=== PATIENT | female | born 1965 | race Caucasian/White ===

== ENCOUNTER → 2016-05-05 | Outpatient (CLI) | payer OTHER ==
[~2016-05-05] MED LIST: OMEG100011 PO; PERC5TAB6 PO; PRAZ2CAP PO; SYNT50TA PO; VENL75CA47 PO; VITA100066 PO; ZOLP6.25 PO
--- NOTE | 2016-05-05 13:01 | REPMRS ---
Patient History The patient states she has not had a clinical breast exam in over a year. Family history of breast cancer in paternal grandmother at age 50 and breast cancer in maternal grandmother at age 60. Digital Woman Screen Mammo: May 05, 2016 - Exam #: [id number] Bilateral CC and MLO view(s) were taken. Technologist: Carlene Moser Technologist Prior study comparison: January 16, 2014, digital mammo diagnostic bilateral, performed at [facility]. FINDINGS: There are scattered fibroglandular densities. There has been no change in the appearance of the mammogram from the prior studies. There is a mild amount of residual fibroglandular tissue which is fairly symmetric. The mild tissue asymmetry in upper outer quadrant right breast is less prominent and still normal parenchyma. There is no interval development of dominant mass, architectural distortion, or clustered microcalcification suggestive of malignancy. No significant changes when compared with prior studies. ASSESSMENT: BI-RADS/ACR category 1 mammogram. Negative. Recommendation Routine screening mammogram in 1 year (for women over age 40). This mammogram was interpreted with the aid of an FDA-approved computer-aided dectection system. A. Negative x-ray reports should not delay biopsy if a dominant or clinically suspicious mass is present. B. Four to eight percent of cancers are not identified by mammography. C. Adenosis and dense breast may obscure an underlying neoplasm. Electronically Signed By: Ismael Castro MD 05/05/16 [id number]
== END ==
LOC: M WHC 11:15
PROVIDERS: ATTEND Physician Assistant
DX: Z12.31 Encounter for screening mammogram for malignant neoplasm of breast (principal)

== ENCOUNTER 2016-06-21 20:43 | Emergency (ER) | payer OTHER ==
[~2016-06-21] VITALS: Ht 167.6 cm; Wt 107.0 kg
[2016-06-21] MEDS ORDERED: SUCR1TA PO (21:05)
[2016-06-21] MEDS ORDERED: OMEP40CA2 PO (21:05)
[2016-06-21] MEDS ORDERED: MORPHINE 4 MG/ML 1ML SYRINGE IV PRN (21:45)
[2016-06-21] MEDS ORDERED: ONDANSETRON 4MG/2ML VIAL (J2405) IV ONE (21:45)
[2016-06-21 21:56] LABS: BASO % 0.7 % (0.0-1.0); EOS # 0.3 K/mm3 (0.0-0.50); EOS % 3.3 % (0.0-3.0); LARGE UNSTAINED CELL # 0.1 K/mm3 (0.0-0.4); LARGE UNSTAINED CELL % 1.4 % (0.0-4.0); LYMPH # 1.9 K/mm3 (1.5-4.5); LYMPH % 21.9 % (24.0-44.0); MEAN CORPUSCULAR VOLUME 90.9 fl (80.0-96.0); MONO # 0.4 K/mm3 (0.0-0.8); MONO % 4.2 % (0.0-5.0); NEUTROPHILS # 5.7 K/mm3 (1.8-7.7); NEUTROPHILS % 68.6 % (36.0-66.0); PLATELET COUNT, AUTOMATED 543 k/mm3 (150-450); RED CELL DISTRIBUTION WIDTH 14.1 % (11.5-14.5); WHITE BLOOD COUNT 8.3 K/mm3 (4.0-10.0)
[2016-06-21 22:27] LABS: CREATININE FOR GFR 1.35 MG/DL (0.55-1.02); POTASSIUM SERUM 4.6 MEQ/L (3.5-5.1)
[2016-06-21] MEDS ORDERED: HYDROmorphone HCL 1 MG/ML SYRINGE (J1170) IV PRN (22:45)
[2016-06-22] MEDS ORDERED: ISOVUE-370 76% 100ML VIAL (Q9967) As Ordered ONE
--- NOTE | 2016-06-22 01:30 | REPUSA ---
CT angiogram of the chest Clinical statement: Chest pain and shortness of breath. Technique: Multiple axial CT images were obtained from the thoracic inlet through the upper abdomen a fter a bolus administration of nonionic intravenous contrast. Coronal and sagittal reconstructions we re also obtained. No comparison is available. Findings: The pulmonary arteries are well-opacified with contrast, with no intraluminal filling defec ts to suggest embolism. The thoracic aorta is unremarkable. Thyroid gland is within normal limits. Th ere is no thoracic lymphadenopathy. There are no pericardial or pleural effusions. There are patchy b ilateral lower lobe infiltrates. Limited imaging of the upper abdomen is unremarkable. There are no s uspicious osseous lesions. Impression: 1. No evidence of pulmonary embolism. 2. Bilateral lower lobe infiltrates.
[2016-06-22 04:19] VITALS: BP 112/68
--- NOTE | 2016-06-22 06:05 | ECGEPIP ---
Stationary ECG Study [facility] - ED Test Date: 2016-06-21 Pat Name: ABRIL PARIS Department: Room: - Gender: F Assembler Installer General: anastasiia : 1965 Requested By: MOI Snider Order Number: [id number] Reading MD: Manny Mauro Measurements Intervals [place] Rate: 83 P: 46 NC: 167 QRS: -12 QRSD: 69 T: 20 QT: 356 QTc: 419 Interpretive Statements SINUS RHYTHM VOLTAGE CRITERIA FOR LVH SIMILAR TO 03/20/15 Electronically Signed On 06-22-2016 6:05:02 EDT by Manny Mauro
--- NOTE | 2016-06-22 06:08 | ECGEPIP ---
Stationary ECG Study [facility] - ED Test Date: 2016-06-22 Pat Name: ABRIL PARIS Department: Room: - Gender: F Associate Software Developer: rosalind : 1965 Requested By: MOI Snider Order Number: [id number] Reading MD: Manny Mauro Measurements Intervals [place] Rate: 65 P: 42 WV: 182 QRS: 1 QRSD: 84 T: 37 QT: 433 QTc: 452 Interpretive Statements SINUS RHYTHM BORDERLINE 1ST DEGREE AV BLOCK MODERATE VOLTAGE CRITERIA FOR LVH, CONSIDER NORMAL VARIANT Electronically Signed On 06-22-2016 6:08:15 EDT by Manny Mauro
--- NOTE | 2016-06-24 20:54 | ED PDOC ---
Post-Departure Follow-Up cta faxed to hilda jamil for follow up Stephen Lara MD Jun 24, 2016 20:54
== END 2016-06-22 04:21 | disposition home or self-care (01) ==
LOC: EDBD 20:43 → M ED 21:17
DX: R07.89 Other chest pain (principal)
CPT/HCPCS: 71275; 80048; 82550; 82553; 85025; 85379; 93005; 93041; 94760; 96374; 96375; 99285; J1170; J2405; Q9967

== ENCOUNTER → 2016-12-24 | Outpatient (REF) | payer OTHER ==
[~2016-12-24] MED LIST changes: +OMEP40CA2 PO; +PERC5TAB12 PO; -PERC5TAB6 PO; +SUCR1TA PO
== END ==
LOC: M SFHCLERA 13:45
PROVIDERS: ATTEND Physician Assistant
DX: R30.0 Dysuria (principal); J02.9 Acute pharyngitis, unspecified

== ENCOUNTER 2017-03-19 03:05 | Emergency (ER) | payer OTHER ==
[2017-03-19] MEDS: KETOROLAC 30 MG/ML VIAL (J1885) IV (03:45)
[2017-03-19] MEDS: dexameTHASONE 20 MG/5 ML VIAL (J1100) IV (03:45)
[2017-03-19] MEDS: NS 500 ML IV (03:45)
[2017-03-19 04:30] LABS: BASO # 0.1 10^3/uL (0.0-0.2); BASO % 0.9 % (0.0-1.0); EOS # 0.2 10^3/uL (0.0-0.50); EOS % 2.4 % (0.0-3.0); HEMATOCRIT 45.1 % (36.0-47.0); HEMOGLOBIN 15.3 g/dl (12.0-16.0); IMMATURE GRANULOCYTE % 0.3 % (0-0); LYMPH # 1.7 10^3/uL (1.5-4.5); LYMPH % 19.2 % (24.0-44.0); MEAN CORPUSCULAR HEMOGLOBIN 30.1 pg (27.0-33.0); MEAN CORPUSCULAR HGB CONC 33.9 g/dl (32.0-36.5); MEAN CORPUSCULAR VOLUME 88.8 fl (80.0-96.0); MONO # 0.4 10^3/uL (0.0-0.8); MONO % 4.4 % (0.0-5.0); NEUTROPHILS # 6.6 10^3/uL (1.8-7.7); NEUTROPHILS % 72.8 % (36.0-66.0); PLATELET COUNT, AUTOMATED 560 10^3/uL (150-450); RED BLOOD COUNT 5.08 10^6/uL (4.00-5.40); RED CELL DISTRIBUTION WIDTH 14.5 % (11.5-14.5); WHITE BLOOD COUNT 9.1 10^3/uL (4.0-10.0)
[2017-03-19 04:50] LABS: INR 0.97
[2017-03-19 04:51] LABS: PARTIAL THROMBOPLASTIN TIME 31.5 SECONDS (26.8-37.9)
[2017-03-19 05:27] LABS: ANION GAP 9 MEQ/L (8-16); BLOOD UREA NITROGEN 20 MG/DL (7-18); CALCIUM LEVEL 8.5 MG/DL (8.5-10.1); CARBON DIOXIDE LEVEL 23 MEQ/L (21-32); CHLORIDE LEVEL 111 MEQ/L (98-107); CPK CREATINE PHOSPHOKINASE 92 U/L (26-192); CREATININE FOR GFR 0.95 MG/DL (0.55-1.02); GLOMERULAR FILTRATION RATE > 60.0 (>51); GLUCOSE, FASTING 138 MG/DL (70-105); MB/CK RELATIVE INDEX 1.08 (< OR =4); POTASSIUM SERUM 4.1 MEQ/L (3.5-5.1); SODIUM LEVEL 143 MEQ/L (136-145); TROPONIN I 0.06 NG/ML (< 0.10)
[2017-03-19] MEDS ORDERED: ISOVUE-370 76% 100ML VIAL (Q9967) As Ordered (05:39)
[2017-03-19 05:56] LABS: D-DIMER QUANT 640.5 ng/ml (<500)
[2017-03-19] MEDS: HYDROmorphone HCL 1 MG/ML SYRINGE (J1170) IV ×4 (05:57→10:21)
[2017-03-19] MEDS: ONDANSETRON 4MG/2ML VIAL (J2405) IV (10:43)
== END 2017-03-19 11:00 | disposition home or self-care (01) ==
LOC: M ED 03:05
DX: M75.122 Complete rotator cuff tear or rupture of left shoulder, not specified as traumatic (principal); F41.9 Anxiety disorder, unspecified; G43.909 Migraine, unspecified, not intractable, without status migrainosus; Z86.718 Personal history of other venous thrombosis and embolism; Z98.84 Bariatric surgery status; Z91.048 Other nonmedicinal substance allergy status
CPT/HCPCS: J1170

== ENCOUNTER 2017-03-20 11:10 | Emergency (ER) | payer OTHER ==
[2017-03-20] MEDS: HYDROmorphone HCL 1 MG/ML SYRINGE (J1170) IM (11:38)
[2017-03-20] MEDS: methylPREDNISolone INJ 125 MG/2 ML VIAL (J2930) IM (12:58)
[2017-03-20] MEDS: ONDANSETRON 4 MG ORAL DISINTEGRATING TAB (S0181) PO (12:58)
== END 2017-03-20 13:38 | disposition home or self-care (01) ==
LOC: M ED 11:10
DX: R20.2 Paresthesia of skin (principal); M25.512 Pain in left shoulder; M79.602 Pain in left arm; Z98.84 Bariatric surgery status; Z91.048 Other nonmedicinal substance allergy status; Z87.891 Personal history of nicotine dependence
CPT/HCPCS: J1170

== ENCOUNTER 2017-03-22 07:08 | Inpatient (IN) | payer OTHER ==
[2017-03-22] MEDS: ONDANSETRON 4MG/2ML VIAL (J2405) IV (08:09)
[2017-03-22] MEDS: HYDROmorphone HCL 1 MG/ML SYRINGE (J1170) IV ×2 (08:09→09:02)
[2017-03-22 08:11] LABS: BASO % 0.3 % (0.0-1.0); EOS % 0.2 % (0.0-3.0); HEMATOCRIT 42.3 % (36.0-47.0); HEMOGLOBIN 14.1 g/dl (12.0-16.0); IMMATURE GRANULOCYTE % 0.4 % (0-0); LYMPH # 2.2 10^3/uL (1.5-4.5); LYMPH % 19.7 % (24.0-44.0); MEAN CORPUSCULAR HEMOGLOBIN 30.2 pg (27.0-33.0); MEAN CORPUSCULAR HGB CONC 33.3 g/dl (32.0-36.5); MEAN CORPUSCULAR VOLUME 90.6 fl (80.0-96.0); MONO # 0.5 10^3/uL (0.0-0.8); MONO % 4.5 % (0.0-5.0); NEUTROPHILS # 8.2 10^3/uL (1.8-7.7); NEUTROPHILS % 74.9 % (36.0-66.0); PLATELET COUNT, AUTOMATED 589 10^3/uL (150-450); RED BLOOD COUNT 4.67 10^6/uL (4.00-5.40); RED CELL DISTRIBUTION WIDTH 14.8 % (11.5-14.5)
[2017-03-22 08:37] LABS: ERYTHROCYTE SEDIMENTATION RATE 6 mm/hr (0-30)
[2017-03-22 08:50] LABS: ALBUMIN 3.4 GM/DL (3.2-5.2); ALKALINE PHOSPHATASE 96 U/L (45-117); ALT/SGPT 102 U/L (12-78); ANION GAP 5 MEQ/L (8-16); AST/SGOT 38 U/L (7-37); BILIRUBIN,DIRECT < 0.1 MG/DL (0.0-0.2); BILIRUBIN,TOTAL 0.4 MG/DL (0.2-1.0); BLOOD UREA NITROGEN 22 MG/DL (7-18); C REACTIVE PROTEIN QUANTITATIV < 0.30 MG/DL (0.00-0.30); CALCIUM LEVEL 8.6 MG/DL (8.5-10.1); CARBON DIOXIDE LEVEL 27 MEQ/L (21-32); CHLORIDE LEVEL 108 MEQ/L (98-107); CPK CREATINE PHOSPHOKINASE 51 U/L (26-192); CREATININE FOR GFR 0.86 MG/DL (0.55-1.02); GLOMERULAR FILTRATION RATE > 60.0 (>51); GLUCOSE, FASTING 106 MG/DL (70-105); POTASSIUM SERUM 3.9 MEQ/L (3.5-5.1); RHEUMATOID FACTOR QUANT < 10.0 IU/ML (0-15.0); SODIUM LEVEL 140 MEQ/L (136-145); TOTAL PROTEIN 6.8 GM/DL (6.4-8.2); TROPONIN I 0.03 NG/ML (< 0.10)
[2017-03-22 08:51] LABS: LACTIC ACID SEPSIS PROTOCOL 2.2 MMOL/L (0.4-2.0)
[2017-03-22 08:52] LABS: MB/CK RELATIVE INDEX 1.96 (< OR =4)
[2017-03-22] MEDS: NS 1,000 ML IV (09:02)
[2017-03-22] MEDS: CAPSAICIN 0.025% CR 60 GM TOP ×3 (13:00→21:00)
[2017-03-22] MEDS: HEPARIN SOD (PORCINE) 5000 UNITS/ML VIAL SC ×2 (13:54→21:58)
[2017-03-22] MEDS: PERCOCET 5MG/325MG TAB PO ×3 (13:54→22:07)
[2017-03-22] MEDS: MIRALAX *UNIT DOSE* 17GM PACKET PO ×2 (13:59→21:58)
[2017-03-22] MEDS: LIDOCAINE 5% (LIDODERM) PATCH TD (13:59)
[2017-03-22] MEDS: LEVOTHYROXINE 50MCG TABLET (0.05MG) PO (14:01)
[2017-03-22 14:45] LABS: TROPONIN I 0.04 NG/ML (< 0.10)
[2017-03-22 15:02] LABS: HEPATITIS B SURFACE ANTIGEN NEGATIVE (NEGATIVE)
[2017-03-22 15:28] LABS: HEPATITIS C VIRUS ABY INDEX 0.1 INDEX (<0.8)
[2017-03-22 15:28] LABS: HEPATITIS B CORE ANTIBODY IGM NEGATIVE (NEGATIVE)
[2017-03-22 15:32] LABS: HEPATITIS A ANTIBODY IGM NEGATIVE (NEGATIVE)
[2017-03-22] MEDS: PREGABALIN 25 MG CAP (LYRICA) PO ×2 (16:34→21:58)
[2017-03-22] MEDS: ACETAMINOPHEN TAB 650MG DOSE (2X325MG) PO (20:47)
[2017-03-22] MEDS: **NOTE PATIENT COMMENT** MISC XX (21:00)
[2017-03-22 22:44] LABS: TROPONIN I 0.03 NG/ML (< 0.10)
[2017-03-23] MEDS: PERCOCET 5MG/325MG TAB PO ×6 (02:16→21:41)
[2017-03-23] MEDS: LEVOTHYROXINE 50MCG TABLET (0.05MG) PO (05:33)
[2017-03-23] MEDS: HEPARIN SOD (PORCINE) 5000 UNITS/ML VIAL SC ×3 (05:33→21:42)
[2017-03-23 06:23] LABS: HEMATOCRIT 39.8 % (36.0-47.0); HEMOGLOBIN 13.1 g/dl (12.0-16.0); MEAN CORPUSCULAR HEMOGLOBIN 29.8 pg (27.0-33.0); MEAN CORPUSCULAR HGB CONC 32.9 g/dl (32.0-36.5); MEAN CORPUSCULAR VOLUME 90.5 fl (80.0-96.0); PLATELET COUNT, AUTOMATED 533 10^3/uL (150-450); RED CELL DISTRIBUTION WIDTH 14.7 % (11.5-14.5); WHITE BLOOD COUNT 7.3 10^3/uL (4.0-10.0)
[2017-03-23 06:33] LABS: ANION GAP 7 MEQ/L (8-16); BLOOD UREA NITROGEN 24 MG/DL (7-18); CALCIUM LEVEL 8.3 MG/DL (8.5-10.1); CARBON DIOXIDE LEVEL 27 MEQ/L (21-32); CHLORIDE LEVEL 109 MEQ/L (98-107); CREATININE FOR GFR 0.92 MG/DL (0.55-1.02); GLOMERULAR FILTRATION RATE > 60.0 (>51); GLUCOSE, FASTING 90 MG/DL (70-105); POTASSIUM SERUM 4.1 MEQ/L (3.5-5.1); SODIUM LEVEL 143 MEQ/L (136-145)
[2017-03-23] MEDS: CAPSAICIN 0.025% CR 60 GM TOP ×4 (07:31→20:57)
[2017-03-23 09:31] LABS: DRVV SCREEN 36.1 SEC
[2017-03-23] MEDS: PREGABALIN 25 MG CAP (LYRICA) PO ×3 (09:33→21:41)
[2017-03-23] MEDS: LIDOCAINE 5% (LIDODERM) PATCH TD (09:33)
[2017-03-23] MEDS: MIRALAX *UNIT DOSE* 17GM PACKET PO ×2 (09:33→21:42)
[2017-03-23 09:36] LABS: PTT LUPUS TYPE ANTICOAG SCREEN 0.8 (0-1.2)
[2017-03-23] MEDS: **NOTE PATIENT COMMENT** MISC XX (21:00)
[2017-03-24] MEDS: PERCOCET 5MG/325MG TAB PO ×5 (01:46→19:51)
[2017-03-24] MEDS: CYCLOBENZAPRINE 5MG TABLET PO ×2 (03:29→13:21)
[2017-03-24] MEDS: LEVOTHYROXINE 50MCG TABLET (0.05MG) PO (05:31)
[2017-03-24] MEDS: HEPARIN SOD (PORCINE) 5000 UNITS/ML VIAL SC ×3 (05:31→21:15)
[2017-03-24 07:05] LABS: HEMATOCRIT 39.3 % (36.0-47.0); MEAN CORPUSCULAR HEMOGLOBIN 29.8 pg (27.0-33.0); MEAN CORPUSCULAR HGB CONC 33.1 g/dl (32.0-36.5); MEAN CORPUSCULAR VOLUME 90.1 fl (80.0-96.0); PLATELET COUNT, AUTOMATED 480 10^3/uL (150-450); RED BLOOD COUNT 4.36 10^6/uL (4.00-5.40); RED CELL DISTRIBUTION WIDTH 14.5 % (11.5-14.5); WHITE BLOOD COUNT 6.5 10^3/uL (4.0-10.0)
[2017-03-24 07:28] LABS: ANION GAP 7 MEQ/L (8-16); BLOOD UREA NITROGEN 23 MG/DL (7-18); CALCIUM LEVEL 8.3 MG/DL (8.5-10.1); CARBON DIOXIDE LEVEL 28 MEQ/L (21-32); CHLORIDE LEVEL 108 MEQ/L (98-107); CREATININE FOR GFR 0.93 MG/DL (0.55-1.02); GLOMERULAR FILTRATION RATE > 60.0 (>51); GLUCOSE, FASTING 96 MG/DL (70-105); POTASSIUM SERUM 3.9 MEQ/L (3.5-5.1); SODIUM LEVEL 143 MEQ/L (136-145)
[2017-03-24] MEDS: CAPSAICIN 0.025% CR 60 GM TOP ×5 (08:08→21:17)
[2017-03-24] MEDS: LIDOCAINE 5% (LIDODERM) PATCH TD (08:22)
[2017-03-24] MEDS: MIRALAX *UNIT DOSE* 17GM PACKET PO ×2 (08:23→21:15)
[2017-03-24] MEDS: PREGABALIN 75 MG CAP(LYRICA) PO ×2 (08:23→21:15)
[2017-03-24] MEDS: CARISOPRODOL 350 MG TAB PO ×2 (08:23→21:15)
[2017-03-24] MEDS ORDERED: PROHANCE 279.3MG/ML 15ML VIAL (A9576) As Ordered (12:30)
[2017-03-24] MEDS ORDERED: PROHANCE 279.3MG/ML 5ML VIAL (A9576) As Ordered (12:30)
[2017-03-24] MEDS: **NOTE PATIENT COMMENT** MISC XX (21:00)
[2017-03-25] MEDS: PERCOCET 5MG/325MG TAB PO ×5 (02:22→22:44)
[2017-03-25] MEDS: HEPARIN SOD (PORCINE) 5000 UNITS/ML VIAL SC ×3 (05:21→20:31)
[2017-03-25] MEDS: LEVOTHYROXINE 50MCG TABLET (0.05MG) PO (05:21)
[2017-03-25 06:30] LABS: HEMATOCRIT 39.9 % (36.0-47.0); HEMOGLOBIN 13.2 g/dl (12.0-16.0); MEAN CORPUSCULAR HEMOGLOBIN 30.2 pg (27.0-33.0); MEAN CORPUSCULAR HGB CONC 33.1 g/dl (32.0-36.5); MEAN CORPUSCULAR VOLUME 91.3 fl (80.0-96.0); PLATELET COUNT, AUTOMATED 504 10^3/uL (150-450); RED BLOOD COUNT 4.37 10^6/uL (4.00-5.40); RED CELL DISTRIBUTION WIDTH 14.5 % (11.5-14.5)
[2017-03-25 06:44] LABS: ANION GAP 6 MEQ/L (8-16); BLOOD UREA NITROGEN 22 MG/DL (7-18); CALCIUM LEVEL 8.3 MG/DL (8.5-10.1); CARBON DIOXIDE LEVEL 29 MEQ/L (21-32); CHLORIDE LEVEL 107 MEQ/L (98-107); GLOMERULAR FILTRATION RATE > 60.0 (>51); GLUCOSE, FASTING 91 MG/DL (70-105); POTASSIUM SERUM 4.6 MEQ/L (3.5-5.1); SODIUM LEVEL 142 MEQ/L (136-145)
[2017-03-25] MEDS: CARISOPRODOL 350 MG TAB PO ×2 (08:16→20:31)
[2017-03-25] MEDS: PREGABALIN 75 MG CAP(LYRICA) PO ×2 (08:16→20:31)
[2017-03-25] MEDS: MIRALAX *UNIT DOSE* 17GM PACKET PO ×2 (08:17→20:32)
[2017-03-25] MEDS: LIDOCAINE 5% (LIDODERM) PATCH TD (08:17)
[2017-03-25] MEDS: CAPSAICIN 0.025% CR 60 GM TOP ×4 (08:18→20:31)
[2017-03-25 11:54] LABS: BEDSIDE GLUCOSE 92 MG/DL (70-105)
[2017-03-25] MEDS: **NOTE PATIENT COMMENT** MISC XX (20:31)
[2017-03-26] MEDS: PERCOCET 5MG/325MG TAB PO ×5 (03:03→22:50)
[2017-03-26] MEDS: ONDANSETRON 4MG/2ML VIAL (J2405) IV (04:04)
[2017-03-26] MEDS: HEPARIN SOD (PORCINE) 5000 UNITS/ML VIAL SC ×3 (05:48→21:59)
[2017-03-26] MEDS: LEVOTHYROXINE 50MCG TABLET (0.05MG) PO (05:48)
[2017-03-26 06:07] LABS: HEMATOCRIT 42.2 % (36.0-47.0); HEMOGLOBIN 13.9 g/dl (12.0-16.0); MEAN CORPUSCULAR HEMOGLOBIN 30.4 pg (27.0-33.0); MEAN CORPUSCULAR HGB CONC 32.9 g/dl (32.0-36.5); MEAN CORPUSCULAR VOLUME 92.3 fl (80.0-96.0); PLATELET COUNT, AUTOMATED 488 10^3/uL (150-450); RED BLOOD COUNT 4.57 10^6/uL (4.00-5.40); RED CELL DISTRIBUTION WIDTH 14.7 % (11.5-14.5); WHITE BLOOD COUNT 5.4 10^3/uL (4.0-10.0)
[2017-03-26 06:19] LABS: ANION GAP 4 MEQ/L (8-16); BLOOD UREA NITROGEN 17 MG/DL (7-18); CALCIUM LEVEL 8.7 MG/DL (8.5-10.1); CARBON DIOXIDE LEVEL 30 MEQ/L (21-32); CHLORIDE LEVEL 103 MEQ/L (98-107); CREATININE FOR GFR 0.93 MG/DL (0.55-1.02); GLOMERULAR FILTRATION RATE > 60.0 (>51); GLUCOSE, FASTING 104 MG/DL (70-105); POTASSIUM SERUM 4.6 MEQ/L (3.5-5.1); SODIUM LEVEL 137 MEQ/L (136-145)
[2017-03-26] MEDS: MIRALAX *UNIT DOSE* 17GM PACKET PO ×2 (07:46→20:13)
[2017-03-26] MEDS: LIDOCAINE 5% (LIDODERM) PATCH TD (07:46)
[2017-03-26] MEDS: PREGABALIN 75 MG CAP(LYRICA) PO ×2 (07:47→20:13)
[2017-03-26] MEDS: CARISOPRODOL 350 MG TAB PO ×2 (07:48→20:13)
[2017-03-26] MEDS: CAPSAICIN 0.025% CR 60 GM TOP ×5 (07:49→20:15)
[2017-03-26] MEDS: BISACODYL 10 MG SUPP PR (11:20)
[2017-03-26] MEDS: **NOTE PATIENT COMMENT** MISC XX (20:13)
[2017-03-26] MEDS ORDERED: ONDANSETRON 4 MG ORAL DISINTEGRATING TAB (S0181) PO (21:30)
[2017-03-27] MEDS: PERCOCET 5MG/325MG TAB PO ×5 (05:07→23:27)
[2017-03-27] MEDS: HEPARIN SOD (PORCINE) 5000 UNITS/ML VIAL SC ×3 (05:08→21:08)
[2017-03-27 05:38] LABS: HEMATOCRIT 42.1 % (36.0-47.0); HEMOGLOBIN 13.7 g/dl (12.0-16.0); MEAN CORPUSCULAR HEMOGLOBIN 30.2 pg (27.0-33.0); MEAN CORPUSCULAR HGB CONC 32.5 g/dl (32.0-36.5); MEAN CORPUSCULAR VOLUME 92.7 fl (80.0-96.0); PLATELET COUNT, AUTOMATED 448 10^3/uL (150-450); RED BLOOD COUNT 4.54 10^6/uL (4.00-5.40); RED CELL DISTRIBUTION WIDTH 14.9 % (11.5-14.5); WHITE BLOOD COUNT 6.3 10^3/uL (4.0-10.0)
[2017-03-27] MEDS: LEVOTHYROXINE 50MCG TABLET (0.05MG) PO (05:42)
[2017-03-27 05:59] LABS: ANION GAP 4 MEQ/L (8-16); BLOOD UREA NITROGEN 12 MG/DL (7-18); CALCIUM LEVEL 8.6 MG/DL (8.5-10.1); CARBON DIOXIDE LEVEL 29 MEQ/L (21-32); CHLORIDE LEVEL 107 MEQ/L (98-107); CREATININE FOR GFR 0.91 MG/DL (0.55-1.02); GLOMERULAR FILTRATION RATE > 60.0 (>51); GLUCOSE, FASTING 105 MG/DL (70-105); POTASSIUM SERUM 4.5 MEQ/L (3.5-5.1); SODIUM LEVEL 140 MEQ/L (136-145)
[2017-03-27] MEDS: CAPSAICIN 0.025% CR 60 GM TOP ×4 (09:00→20:11)
[2017-03-27] MEDS: MIRALAX *UNIT DOSE* 17GM PACKET PO ×2 (09:39→20:11)
[2017-03-27] MEDS: CARISOPRODOL 350 MG TAB PO ×2 (09:39→20:11)
[2017-03-27] MEDS: PREGABALIN 75 MG CAP(LYRICA) PO ×2 (09:39→20:11)
[2017-03-27] MEDS: LIDOCAINE 5% (LIDODERM) PATCH TD (09:39)
[2017-03-27] MEDS: **NOTE PATIENT COMMENT** MISC XX (20:11)
[2017-03-28] MEDS: PERCOCET 5MG/325MG TAB PO ×5 (04:09→21:32)
[2017-03-28] MEDS: LEVOTHYROXINE 50MCG TABLET (0.05MG) PO (05:39)
[2017-03-28] MEDS: HEPARIN SOD (PORCINE) 5000 UNITS/ML VIAL SC ×3 (05:39→21:32)
[2017-03-28] MEDS: CAPSAICIN 0.025% CR 60 GM TOP ×4 (09:00→19:47)
[2017-03-28] MEDS: LIDOCAINE 5% (LIDODERM) PATCH TD (09:03)
[2017-03-28] MEDS: MIRALAX *UNIT DOSE* 17GM PACKET PO ×2 (09:03→21:33)
[2017-03-28] MEDS: CARISOPRODOL 350 MG TAB PO ×2 (09:03→21:32)
[2017-03-28] MEDS: PREGABALIN 75 MG CAP(LYRICA) PO ×2 (09:03→21:32)
[2017-03-28] MEDS: **NOTE PATIENT COMMENT** MISC XX (21:00)
[2017-03-29] MEDS: PERCOCET 5MG/325MG TAB PO ×6 (01:48→23:18)
[2017-03-29] MEDS: HEPARIN SOD (PORCINE) 5000 UNITS/ML VIAL SC ×3 (05:50→21:47)
[2017-03-29] MEDS: LEVOTHYROXINE 50MCG TABLET (0.05MG) PO (05:51)
[2017-03-29] MEDS: BISACODYL 10 MG SUPP PR (05:51)
[2017-03-29] MEDS: CAPSAICIN 0.025% CR 60 GM TOP ×4 (09:00→20:08)
[2017-03-29] MEDS: LIDOCAINE 5% (LIDODERM) PATCH TD (10:04)
[2017-03-29] MEDS: MIRALAX *UNIT DOSE* 17GM PACKET PO ×2 (10:04→20:32)
[2017-03-29] MEDS: PREGABALIN 75 MG CAP(LYRICA) PO ×2 (10:06→21:47)
[2017-03-29] MEDS: CARISOPRODOL 350 MG TAB PO ×2 (10:06→21:47)
[2017-03-29] MEDS: **NOTE PATIENT COMMENT** MISC XX (21:47)
[2017-03-30] MEDS: PERCOCET 5MG/325MG TAB PO ×4 (03:28→20:09)
[2017-03-30] MEDS: HEPARIN SOD (PORCINE) 5000 UNITS/ML VIAL SC ×3 (06:11→21:32)
[2017-03-30] MEDS: LEVOTHYROXINE 50MCG TABLET (0.05MG) PO (06:11)
[2017-03-30] MEDS: PREGABALIN 75 MG CAP(LYRICA) PO ×2 (07:56→21:32)
[2017-03-30] MEDS: CARISOPRODOL 350 MG TAB PO ×2 (07:56→21:32)
[2017-03-30] MEDS: MIRALAX *UNIT DOSE* 17GM PACKET PO ×2 (07:56→20:09)
[2017-03-30] MEDS: LIDOCAINE 5% (LIDODERM) PATCH TD (07:57)
[2017-03-30] MEDS: CAPSAICIN 0.025% CR 60 GM TOP ×4 (07:58→20:09)
[2017-03-30] MEDS: **NOTE PATIENT COMMENT** MISC XX (21:00)
[2017-03-31] MEDS: PERCOCET 5MG/325MG TAB PO ×3 (02:55→12:41)
[2017-03-31] MEDS: HEPARIN SOD (PORCINE) 5000 UNITS/ML VIAL SC (05:37)
[2017-03-31] MEDS: LEVOTHYROXINE 50MCG TABLET (0.05MG) PO (05:37)
[2017-03-31] MEDS: PREGABALIN 75 MG CAP(LYRICA) PO (08:06)
[2017-03-31] MEDS: CARISOPRODOL 350 MG TAB PO (08:06)
[2017-03-31] MEDS: LIDOCAINE 5% (LIDODERM) PATCH TD (08:07)
[2017-03-31] MEDS: MIRALAX *UNIT DOSE* 17GM PACKET PO (08:07)
[2017-03-31] MEDS: CAPSAICIN 0.025% CR 60 GM TOP ×3 (08:09→12:12)
== END 2017-03-31 13:15 | disposition home or self-care (01) | DRG 556 ==
LOC: M ED 07:08 → M ED INP 11:15 → M MSPAV 12:39
DX: M79.602 Pain in left arm (principal); E87.2 Acidosis; E03.9 Hypothyroidism, unspecified; E66.01 Morbid (severe) obesity due to excess calories; F31.9 Bipolar disorder, unspecified; I10 Essential (primary) hypertension; Z79.899 Other long term (current) drug therapy; Z91.14 Patient's other noncompliance with medication regimen; Z90.710 Acquired absence of both cervix and uterus; Z98.84 Bariatric surgery status; Z86.718 Personal history of other venous thrombosis and embolism; Z91.5 Personal history of self-harm; Z91.048 Other nonmedicinal substance allergy status

== ENCOUNTER 2017-05-02 16:30 | Inpatient (IN) | payer OTHER ==
[2017-05-02] MEDS: MORPHINE 4 MG/ML 1ML VIAL (J2270) IV (18:49)
[2017-05-02 19:10] LABS: BASO # 0.1 10^3/uL (0.0-0.2); BASO % 0.8 % (0.0-1.0); EOS # 0.3 10^3/uL (0.0-0.50); EOS % 3.5 % (0.0-3.0); HEMATOCRIT 41.7 % (36.0-47.0); HEMOGLOBIN 14.1 g/dl (12.0-16.0); IMMATURE GRANULOCYTE % 0.3 % (0-3.0); LYMPH # 1.7 10^3/uL (1.5-4.5); LYMPH % 24.2 % (24.0-44.0); MEAN CORPUSCULAR HEMOGLOBIN 29.5 pg (27.0-33.0); MEAN CORPUSCULAR HGB CONC 33.8 g/dl (32.0-36.5); MEAN CORPUSCULAR VOLUME 87.2 fl (80.0-96.0); MONO # 0.4 10^3/uL (0.0-0.8); MONO % 5.3 % (0.0-5.0); NEUTROPHILS # 4.7 10^3/uL (1.8-7.7); NEUTROPHILS % 65.9 % (36.0-66.0); PLATELET COUNT, AUTOMATED 406 10^3/uL (150-450); RED BLOOD COUNT 4.78 10^6/uL (4.00-5.40); WHITE BLOOD COUNT 7.1 10^3/uL (4.0-10.0)
[2017-05-02 19:19] LABS: ANION GAP 7 MEQ/L (8-16); BLOOD UREA NITROGEN 14 MG/DL (7-18); CALCIUM LEVEL 8.4 MG/DL (8.5-10.1); CARBON DIOXIDE LEVEL 27 MEQ/L (21-32); CHLORIDE LEVEL 111 MEQ/L (98-107); CREATININE FOR GFR 0.81 MG/DL (0.55-1.30); GLOMERULAR FILTRATION RATE > 60.0 (>51); GLUCOSE, FASTING 82 MG/DL (70-100); POTASSIUM SERUM 3.7 MEQ/L (3.5-5.1); SODIUM LEVEL 145 MEQ/L (136-145)
[2017-05-02] MEDS: MIRALAX *UNIT DOSE* 17GM PACKET PO (21:00)
[2017-05-02] MEDS: PREGABALIN 75 MG CAP(LYRICA) PO (21:00)
[2017-05-02 21:09] LABS: TROPONIN I 0.03 NG/ML (< 0.10)
[2017-05-02 21:44] LABS: CPK CREATINE PHOSPHOKINASE 84 U/L (26-192); FREE T4 1.13 NG/DL (0.76-1.46); MB/CK RELATIVE INDEX 1.19 (< OR =4); THYROID STIMULATING HORMONE 0.934 uIU/ML (0.358-3.740)
[2017-05-02] MEDS ORDERED: HEPARIN SOD (PORCINE) 5000 UNITS/ML VIAL SC (22:30)
[2017-05-02] MEDS: ACETAMINOPHEN TAB 650MG DOSE (2X325MG) PO (23:46)
[2017-05-02 23:51] LABS: CPK CREATINE PHOSPHOKINASE 77 U/L (26-192); MB/CK RELATIVE INDEX 1.29 (< OR =4); TROPONIN I 0.03 NG/ML (< 0.10)
[2017-05-03] MEDS ORDERED: PERCOCET 5MG/325MG TAB PO
[2017-05-03] MEDS: ACETAMINOPHEN TAB 650MG DOSE (2X325MG) PO ×2 (02:05→20:01)
[2017-05-03] MEDS: LEVOTHYROXINE 50MCG TABLET (0.05MG) PO (05:53)
[2017-05-03 06:15] LABS: BASO # 0.1 10^3/uL (0.0-0.2); BASO % 0.9 % (0.0-1.0); EOS # 0.2 10^3/uL (0.0-0.50); EOS % 3.7 % (0.0-3.0); HEMATOCRIT 39.2 % (36.0-47.0); HEMOGLOBIN 13.3 g/dl (12.0-16.0); IMMATURE GRANULOCYTE % 0.2 % (0-3.0); LYMPH # 1.8 10^3/uL (1.5-4.5); LYMPH % 32.2 % (24.0-44.0); MEAN CORPUSCULAR HEMOGLOBIN 29.5 pg (27.0-33.0); MEAN CORPUSCULAR HGB CONC 33.9 g/dl (32.0-36.5); MEAN CORPUSCULAR VOLUME 86.9 fl (80.0-96.0); MONO # 0.3 10^3/uL (0.0-0.8); MONO % 6.3 % (0.0-5.0); NEUTROPHILS # 3.1 10^3/uL (1.8-7.7); NEUTROPHILS % 56.7 % (36.0-66.0); PLATELET COUNT, AUTOMATED 381 10^3/uL (150-450); RED BLOOD COUNT 4.51 10^6/uL (4.00-5.40); RED CELL DISTRIBUTION WIDTH 13.1 % (11.5-14.5); WHITE BLOOD COUNT 5.4 10^3/uL (4.0-10.0)
[2017-05-03 06:52] LABS: ALBUMIN/GLOBULIN RATIO 0.97 (1.00-1.93); ALT/SGPT 91 U/L (12-78); ANION GAP 8 MEQ/L (8-16); AST/SGOT 128 U/L (7-37); BILIRUBIN,TOTAL 0.5 MG/DL (0.2-1.0); BLOOD UREA NITROGEN 17 MG/DL (7-18); CALCIUM LEVEL 8.4 MG/DL (8.5-10.1); CARBON DIOXIDE LEVEL 26 MEQ/L (21-32); CHLORIDE LEVEL 111 MEQ/L (98-107); CPK CREATINE PHOSPHOKINASE 94 U/L (26-192); CREATININE FOR GFR 0.81 MG/DL (0.55-1.30); GLOMERULAR FILTRATION RATE > 60.0 (>51); GLUCOSE, FASTING 97 MG/DL (70-100); SODIUM LEVEL 145 MEQ/L (136-145); TOTAL PROTEIN 6.1 GM/DL (6.4-8.2); TROPONIN I 0.03 NG/ML (< 0.10)
[2017-05-03 06:55] LABS: ALKALINE PHOSPHATASE 105 U/L (45-117); MB/CK RELATIVE INDEX 1.06 (< OR =4)
[2017-05-03] MEDS: VITAMIN D 1,000 INTERNATIONAL UNITS TABLET PO (08:36)
[2017-05-03] MEDS: PANTOPRAZOLE 40MG TAB (PROTONIX) PO (08:36)
[2017-05-03] MEDS: ENOXAPARIN 40 MG/0.4 ML SYRINGE (J1650) SC (08:37)
[2017-05-03] MEDS: MIRALAX *UNIT DOSE* 17GM PACKET PO ×2 (08:37→20:02)
[2017-05-03] MEDS: PREGABALIN 75 MG CAP(LYRICA) PO ×2 (08:37→20:01)
[2017-05-03] MEDS: LIDOCAINE 5% (LIDODERM) PATCH TD (08:37)
[2017-05-03] MEDS: ONDANSETRON 4MG/2ML VIAL (J2405) IV (10:45)
[2017-05-03 14:59] LABS: CPK CREATINE PHOSPHOKINASE 66 U/L (26-192); MB/CK RELATIVE INDEX 1.51 (< OR =4); TROPONIN I 0.03 NG/ML (< 0.10)
[2017-05-03] MEDS: **NOTE PATIENT COMMENT** MISC XX (20:02)
[2017-05-03] MEDS ORDERED: SLF 3 ML SYR IV (22:30)
[2017-05-04] MEDS: SLF 3 ML SYR IV ×3 (06:28→22:00)
[2017-05-04] MEDS: LEVOTHYROXINE 50MCG TABLET (0.05MG) PO (06:28)
[2017-05-04 07:26] LABS: ALBUMIN 3.2 GM/DL (3.2-5.2); ALBUMIN/GLOBULIN RATIO 0.94 (1.00-1.93); ALKALINE PHOSPHATASE 100 U/L (45-117); ALT/SGPT 63 U/L (12-78); ANION GAP 10 MEQ/L (8-16); AST/SGOT 55 U/L (7-37); BILIRUBIN,TOTAL 0.4 MG/DL (0.2-1.0); BLOOD UREA NITROGEN 17 MG/DL (7-18); CALCIUM LEVEL 8.8 MG/DL (8.5-10.1); CARBON DIOXIDE LEVEL 23 MEQ/L (21-32); CHLORIDE LEVEL 111 MEQ/L (98-107); CREATININE FOR GFR 0.89 MG/DL (0.55-1.30); GLOMERULAR FILTRATION RATE > 60.0 (>51); GLUCOSE, FASTING 99 MG/DL (70-100); MAGNESIUM LEVEL 2.1 MG/DL (1.8-2.4); POTASSIUM SERUM 4.5 MEQ/L (3.5-5.1); SODIUM LEVEL 144 MEQ/L (136-145); TOTAL PROTEIN 6.6 GM/DL (6.4-8.2)
[2017-05-04 08:08] LABS: BASO # 0.1 10^3/uL (0.0-0.2); BASO % 1.4 % (0.0-1.0); EOS # 0.3 10^3/uL (0.0-0.50); EOS % 4.6 % (0.0-3.0); HEMATOCRIT 43.1 % (36.0-47.0); HEMOGLOBIN 14.6 g/dl (12.0-16.0); IMMATURE GRANULOCYTE % 0.4 % (0-3.0); LYMPH # 1.9 10^3/uL (1.5-4.5); LYMPH % 33.8 % (24.0-44.0); MEAN CORPUSCULAR HEMOGLOBIN 29.6 pg (27.0-33.0); MEAN CORPUSCULAR HGB CONC 33.9 g/dl (32.0-36.5); MEAN CORPUSCULAR VOLUME 87.2 fl (80.0-96.0); MONO # 0.3 10^3/uL (0.0-0.8); NEUTROPHILS # 3.1 10^3/uL (1.8-7.7); NEUTROPHILS % 54.8 % (36.0-66.0); PLATELET COUNT, AUTOMATED 458 10^3/uL (150-450); RED BLOOD COUNT 4.94 10^6/uL (4.00-5.40); RED CELL DISTRIBUTION WIDTH 13.2 % (11.5-14.5); WHITE BLOOD COUNT 5.7 10^3/uL (4.0-10.0)
[2017-05-04] MEDS: PREGABALIN 75 MG CAP(LYRICA) PO ×2 (08:44→20:53)
[2017-05-04] MEDS: PANTOPRAZOLE 40MG TAB (PROTONIX) PO (08:44)
[2017-05-04] MEDS: VITAMIN D 1,000 INTERNATIONAL UNITS TABLET PO (08:44)
[2017-05-04] MEDS: LIDOCAINE 5% (LIDODERM) PATCH TD (08:45)
[2017-05-04] MEDS: MIRALAX *UNIT DOSE* 17GM PACKET PO ×2 (08:45→21:00)
[2017-05-04] MEDS: ENOXAPARIN 40 MG/0.4 ML SYRINGE (J1650) SC (08:45)
[2017-05-04] MEDS ORDERED: LIDOCAINE 2% INJ 100 MG/5 ML SDV (FOR ANES.) As Ordered (17:59)
[2017-05-04] MEDS ORDERED: PROPOFOL 200 MG/20 ML VIAL As Ordered (17:59)
[2017-05-04] MEDS ORDERED: MIDAZOLAM INJ 2 MG/2 ML VIAL (J2250) As Ordered (18:00)
[2017-05-04] MEDS ORDERED: fentaNYL 100 MCG/2 ML INJECTION (J3010) As Ordered (18:00)
[2017-05-04] MEDS: LIDOCAINE 1% MDV 20ML VIAL As Ordered (18:46)
[2017-05-04] MEDS ORDERED: ceFAZolin 1GM INJ (J0690 PER 500MG) As Ordered (18:56)
[2017-05-04] MEDS ORDERED: PERCOCET 5MG/325MG TAB PO (19:30)
[2017-05-04] MEDS ORDERED: ONDANSETRON 4MG/2ML VIAL (J2405) IV (19:30)
[2017-05-04] MEDS ORDERED: fentaNYL 100 MCG/2 ML INJECTION (J3010) IV (19:30)
[2017-05-04] MEDS: LR 1,000 ML IV (19:30)
[2017-05-04] MEDS: ONDANSETRON 4MG/2ML VIAL (J2405) IV (20:53)
[2017-05-04] MEDS: **NOTE PATIENT COMMENT** MISC XX (21:00)
[2017-05-05 05:40] LABS: BASO # 0.1 10^3/uL (0.0-0.2); BASO % 1.2 % (0.0-1.0); EOS # 0.3 10^3/uL (0.0-0.50); EOS % 4.8 % (0.0-3.0); HEMATOCRIT 39.9 % (36.0-47.0); HEMOGLOBIN 13.5 g/dl (12.0-16.0); IMMATURE GRANULOCYTE % 0.3 % (0-3.0); LYMPH # 1.7 10^3/uL (1.5-4.5); MEAN CORPUSCULAR HEMOGLOBIN 29.5 pg (27.0-33.0); MEAN CORPUSCULAR HGB CONC 33.8 g/dl (32.0-36.5); MEAN CORPUSCULAR VOLUME 87.3 fl (80.0-96.0); MONO # 0.4 10^3/uL (0.0-0.8); MONO % 6.5 % (0.0-5.0); NEUTROPHILS # 3.4 10^3/uL (1.8-7.7); NEUTROPHILS % 58.2 % (36.0-66.0); PLATELET COUNT, AUTOMATED 376 10^3/uL (150-450); RED BLOOD COUNT 4.57 10^6/uL (4.00-5.40); RED CELL DISTRIBUTION WIDTH 13.1 % (11.5-14.5); WHITE BLOOD COUNT 5.9 10^3/uL (4.0-10.0)
[2017-05-05 06:00] LABS: ALBUMIN 2.9 GM/DL (3.2-5.2); ALBUMIN/GLOBULIN RATIO 0.88 (1.00-1.93); ALKALINE PHOSPHATASE 86 U/L (45-117); ALT/SGPT 42 U/L (12-78); ANION GAP 7 MEQ/L (8-16); AST/SGOT 27 U/L (7-37); BILIRUBIN,TOTAL 0.3 MG/DL (0.2-1.0); BLOOD UREA NITROGEN 19 MG/DL (7-18); CALCIUM LEVEL 8.2 MG/DL (8.5-10.1); CARBON DIOXIDE LEVEL 26 MEQ/L (21-32); CHLORIDE LEVEL 109 MEQ/L (98-107); CREATININE FOR GFR 0.76 MG/DL (0.55-1.30); GLOMERULAR FILTRATION RATE > 60.0 (>51); GLUCOSE, FASTING 95 MG/DL (70-100); MAGNESIUM LEVEL 2.2 MG/DL (1.8-2.4); POTASSIUM SERUM 3.9 MEQ/L (3.5-5.1); SODIUM LEVEL 142 MEQ/L (136-145); TOTAL PROTEIN 6.2 GM/DL (6.4-8.2)
[2017-05-05] MEDS: SLF 3 ML SYR IV (06:28)
[2017-05-05] MEDS: LEVOTHYROXINE 50MCG TABLET (0.05MG) PO (06:28)
[2017-05-05] MEDS: LIDOCAINE 5% (LIDODERM) PATCH TD (08:18)
[2017-05-05] MEDS: MIRALAX *UNIT DOSE* 17GM PACKET PO ×2 (08:18→08:23)
[2017-05-05] MEDS: ONDANSETRON 4MG/2ML VIAL (J2405) IV (08:19)
[2017-05-05] MEDS: VITAMIN D 1,000 INTERNATIONAL UNITS TABLET PO (08:19)
[2017-05-05] MEDS: PREGABALIN 75 MG CAP(LYRICA) PO (08:19)
[2017-05-05] MEDS: PANTOPRAZOLE 40MG TAB (PROTONIX) PO (08:20)
[2017-05-05] MEDS: CALCIUM CARBONATE 500 MG CHEW U/D PO (09:47)
== END 2017-05-05 12:04 | disposition home or self-care (01) | DRG 262 ==
LOC: M ED INP 05-03 08:15 → M ED 16:30 → M PCU 05-03 21:31 → M ED INP 22:17
PROC: 0JH632Z Insertion of Monitoring Device into Chest Subcutaneous Tissue and Fascia, Percutaneous Approach (ICD-10-PCS; principal; 2017-05-04 18:00)
DX: R55 Syncope and collapse (principal); I10 Essential (primary) hypertension; R00.2 Palpitations; E03.9 Hypothyroidism, unspecified; Z68.37 Body mass index [BMI] 37.0-37.9, adult; M54.10 Radiculopathy, site unspecified; E66.9 Obesity, unspecified; Z79.899 Other long term (current) drug therapy; Z91.048 Other nonmedicinal substance allergy status; Z90.49 Acquired absence of other specified parts of digestive tract; Z90.710 Acquired absence of both cervix and uterus; Z90.721 Acquired absence of ovaries, unilateral; Z87.891 Personal history of nicotine dependence; Z98.84 Bariatric surgery status

== ENCOUNTER 2017-08-06 11:35 | Day surgery (SDC) | payer OTHER ==
[2017-08-06] MEDS: NS 1,000 ML IV (11:52)
[2017-08-06] MEDS ORDERED: PROPOFOL 200 MG/20 ML VIAL As Ordered (12:18)
[2017-08-06] MEDS ORDERED: LIDOCAINE 2% INJ 100 MG/5 ML SDV (FOR ANES.) As Ordered (12:18)
== END 2017-08-06 15:05 | disposition home or self-care (01) ==
LOC: M OPP 11:35
DX: Q43.8 Other specified congenital malformations of intestine (principal); R19.4 Change in bowel habit; R10.84 Generalized abdominal pain; Z98.0 Intestinal bypass and anastomosis status; R10.13 Epigastric pain; G47.30 Sleep apnea, unspecified; I10 Essential (primary) hypertension; E03.9 Hypothyroidism, unspecified; E55.9 Vitamin D deficiency, unspecified; M54.2 Cervicalgia; F41.9 Anxiety disorder, unspecified; F32.9 Major depressive disorder, single episode, unspecified; I49.9 Cardiac arrhythmia, unspecified; G43.909 Migraine, unspecified, not intractable, without status migrainosus; Z79.899 Other long term (current) drug therapy; Z91.048 Other nonmedicinal substance allergy status; Z87.891 Personal history of nicotine dependence; Z90.711 Acquired absence of uterus with remaining cervical stump; Z95.818 Presence of other cardiac implants and grafts; Z87.19 Personal history of other diseases of the digestive system; Z85.818 Personal history of malignant neoplasm of other sites of lip, oral cavity, and pharynx; Z85.3 Personal history of malignant neoplasm of breast
CPT/HCPCS: 45378

== ENCOUNTER → 2017-08-30 | Outpatient (CLI) | payer OTHER ==
[~2017-08-30] MED LIST changes: -OMEG100011 PO; -OMEP40CA2 PO; -PERC5TAB12 PO; -PRAZ2CAP PO; +PROHANCE 279.3MG/ML 15ML VIAL (A9576) As Ordered; +PROHANCE 279.3MG/ML 5ML VIAL (A9576) As Ordered; -SUCR1TA PO; -SYNT50TA PO; -VENL75CA47 PO; -VITA100066 PO; -ZOLP6.25 PO
== END ==
LOC: M RAD 15:59
DX: H90.11 Conductive hearing loss, unilateral, right ear, with unrestricted hearing on the contralateral side (principal)
CPT/HCPCS: A9576

== ENCOUNTER 2017-11-12 11:02 | Day surgery (SDC) | payer OTHER ==
[2017-11-12] MEDS ORDERED: PROPOFOL 200 MG/20 ML VIAL As Ordered (11:39)
[2017-11-12] MEDS ORDERED: MIDAZOLAM INJ 2 MG/2 ML VIAL (J2250) As Ordered (11:40)
[2017-11-12] MEDS ORDERED: fentaNYL 100 MCG/2 ML INJECTION (J3010) As Ordered ×2 (11:41→13:41)
[2017-11-12] MEDS: LR 1,000 ML IV (11:42)
[2017-11-12 11:50] LABS: HEMATOCRIT 44.3 % (36.0-47.0); HEMOGLOBIN 14.7 g/dl (12.0-15.5); MEAN CORPUSCULAR HEMOGLOBIN 27.1 pg (27.0-33.0); MEAN CORPUSCULAR HGB CONC 33.2 g/dl (32.0-36.5); MEAN CORPUSCULAR VOLUME 81.7 fl (80.0-96.0); PLATELET COUNT, AUTOMATED 557 10^3/uL (150-450); RED BLOOD COUNT 5.42 10^6/uL (4.00-5.40); RED CELL DISTRIBUTION WIDTH 14.2 % (11.5-14.5); WHITE BLOOD COUNT 6.7 10^3/uL (4.0-10.0)
[2017-11-12 12:11] LABS: ALBUMIN 3.5 GM/DL (3.2-5.2); ALBUMIN/GLOBULIN RATIO 0.97 (1.00-1.93); ALKALINE PHOSPHATASE 109 U/L (45-117); ALT/SGPT 39 U/L (12-78); ANION GAP 9 MEQ/L (8-16); AST/SGOT 32 U/L (7-37); BILIRUBIN,TOTAL 0.5 MG/DL (0.2-1.0); BLOOD UREA NITROGEN 21 MG/DL (7-18); CALCIUM LEVEL 9.6 MG/DL (8.5-10.1); CARBON DIOXIDE LEVEL 27 MEQ/L (21-32); CHLORIDE LEVEL 107 MEQ/L (98-107); GLOMERULAR FILTRATION RATE > 60.0 (>51); GLUCOSE, FASTING 90 MG/DL (70-100); SODIUM LEVEL 143 MEQ/L (136-145); TOTAL PROTEIN 7.1 GM/DL (6.4-8.2)
[2017-11-12] MEDS ORDERED: ONDANSETRON 4MG/2ML VIAL (J2405) As Ordered (12:11)
[2017-11-12] MEDS ORDERED: LIDOCAINE 2% INJ 100 MG/5 ML SDV (FOR ANES.) As Ordered (12:11)
[2017-11-12] MEDS ORDERED: METOCLOPRAMIDE INJ 10MG/2ML VIAL (J2765) As Ordered (12:11)
[2017-11-12] MEDS ORDERED: dexameTHASONE 4 MG/ML 1ML VIAL (J1100) As Ordered ×2 (12:11)
[2017-11-12 12:12] LABS: POTASSIUM SERUM 5.3 MEQ/L (3.5-5.1)
[2017-11-12] MEDS: TRIAMCINOLONE ACETONIDE SUSP 40 MG/ML VIAL (J3301) As Ordered (13:11)
[2017-11-12] MEDS: ROPIvacaine 0.5% 30 ML INJECTION (J2795 PER 1MG) As Ordered (13:11)
[2017-11-12] MEDS ORDERED: PERCOCET 5MG/325MG TAB As Ordered (13:41)
[2017-11-12] MEDS: PERCOCET 5MG/325MG TAB PO ×2 (13:45→14:38)
[2017-11-12] MEDS: fentaNYL 100 MCG/2 ML INJECTION (J3010) IV ×3 (13:45→13:55)
[2017-11-12] MEDS ORDERED: LR 1,000 ML IV ×2 (14:00)
[2017-11-12] MEDS ORDERED: MORPHINE 4 MG/ML 1ML VIAL/SYRINGE (J2270) IV (14:00)
[2017-11-12] MEDS ORDERED: ONDANSETRON 4MG/2ML VIAL (J2405) IV (14:00)
[2017-11-12] MEDS ORDERED: ACETAMINOPH W/CODEINE #3 TAB UD PO ×2 (14:00)
[2017-11-12] MEDS ORDERED: METOCLOPRAMIDE INJ 10MG/2ML VIAL (J2765) IV (14:00)
== END 2017-11-12 15:50 | disposition home or self-care (01) ==
LOC: M SDC 11:02
DX: M23.222 Derangement of posterior horn of medial meniscus due to old tear or injury, left knee (principal); M17.12 Unilateral primary osteoarthritis, left knee; D64.9 Anemia, unspecified; E03.9 Hypothyroidism, unspecified; G47.30 Sleep apnea, unspecified; Z98.84 Bariatric surgery status; F41.9 Anxiety disorder, unspecified; Z79.899 Other long term (current) drug therapy; F32.9 Major depressive disorder, single episode, unspecified
CPT/HCPCS: 29880

== ENCOUNTER 2018-03-25 16:37 | Inpatient (IN) | payer OTHER ==
[~2018-03-25] VITALS: Ht 167.6 cm; Wt 105.8 kg
[~2018-03-25 16:37] MED LIST changes: +CARI1TAB7 PO; +CYAN1000VL IM; +CYCL5TAB PO; +FOLI1TAB11 PO; +GABA-843 PO; +HYDR-3713 PO; +LEVO50TA5 PO; +LEVO75TA4 PO; +LIDO3CRE14 TOP; +LIDO5DIS41 TD; +LIDO5TD TOP; +LYRI75CA PO; +MEDR4PAK PO; +MELA3TAB49 PO; +NORCOTAB PO; +OMEG100011 PO; +OMEP40CA2 PO; +OXYC1TAB23 PO; +PEG1POW PO; +PERC5TAB12 PO; +PERCOCET PO; +POLY1POW38 PO; +PRAZ2CAP PO; -PROHANCE 279.3MG/ML 15ML VIAL (A9576) As Ordered; -PROHANCE 279.3MG/ML 5ML VIAL (A9576) As Ordered; +SUCR1SUS PO; +SUCR1TA PO; +SYNT50TA PO; +VENL75CA47 PO; +VITA100066 PO; +ZOLP6.25 PO
[2018-03-25] MEDS ORDERED: VENL75CA47 PO (16:48)
[2018-03-25 18:21] LABS: HEMATOCRIT 44.7 % (36.0-47.0); HEMOGLOBIN 14.6 g/dl (12.0-15.5); MEAN CORPUSCULAR HGB CONC 32.7 g/dl (32.0-36.5); MEAN CORPUSCULAR VOLUME 79.7 fl (80.0-96.0); PLATELET COUNT, AUTOMATED 593 10^3/uL (150-450); RED BLOOD COUNT 5.61 10^6/uL (4.00-5.40); WHITE BLOOD COUNT 7.6 10^3/uL (4.0-10.0)
[2018-03-25 18:41] LABS: AMPHETAMINES LEVEL URINE NEGATIVE (NEGATIVE); BARBITURATES URINE NEGATIVE (NEGATIVE); BENZODIAZEPINES URINE NEGATIVE (NEGATIVE); CANNABINOIDS URINE NEGATIVE (NEGATIVE); COCAINE METABOLITE URINE NEGATIVE (NEGATIVE); METHADONE URINE NEGATIVE (NEGATIVE); OPIATES URINE NEGATIVE (NEGATIVE); PHENCYCLIDINE URINE NEGATIVE (NEGATIVE)
[2018-03-25 19:11] LABS: ACETAMINOPHEN LEVEL < 2.0 UG/ML (10.0-30.0); ALBUMIN 3.7 GM/DL (3.2-5.2); ALT/SGPT 41 U/L (12-78); BILIRUBIN,DIRECT 0.1 MG/DL (0.0-0.2); BILIRUBIN,TOTAL 0.4 MG/DL (0.2-1.0); BLOOD UREA NITROGEN 20 MG/DL (7-18); CALCIUM LEVEL 9.3 MG/DL (8.5-10.1); CARBON DIOXIDE LEVEL 26 MEQ/L (21-32); CHLORIDE LEVEL 105 MEQ/L (98-107); CREATININE FOR GFR 0.93 MG/DL (0.55-1.30); ETHYL ALCOHOL (ETHANOL) < 0.003 % (0.000-0.010); GLOMERULAR FILTRATION RATE > 60.0 (>51); GLUCOSE, FASTING 95 MG/DL (70-100); POTASSIUM SERUM 4.7 MEQ/L (3.5-5.1); SALICYLATE LEVEL < 1.7 MG/DL (5.0-30.0); SODIUM LEVEL 140 MEQ/L (136-145); TOTAL PROTEIN 7.2 GM/DL (6.4-8.2)
[2018-03-25] MEDS ORDERED: LEVO100T5 PO (20:20)
[2018-03-25] MEDS ORDERED: MAALOX 30 ML SUSP *UDC PO PRN (20:30)
[2018-03-25] MEDS ORDERED: MOM 30ML SUSPENSION UDC PO PRN (20:30)
[2018-03-25] MEDS ORDERED: ACETAMINOPHEN TAB 650MG DOSE (2X325MG) PO PRN (20:30)
[2018-03-25 21:19] VITALS: BP 148/82
[2018-03-26 06:00] VITALS: BP 130/60
[2018-03-26 12:00] VITALS: BP 132/78
[2018-03-26 18:00] VITALS: BP 136/78
--- NOTE | 2018-03-26 18:46 | NUR ---
Patient seen, note to follow
[2018-03-26] MEDS: LURASIDONE 20 MG TAB (LATUDA) PO SCH (20:32)
[2018-03-26] MEDS: traZODone 50 MG TAB PO PRN (22:06)
[2018-03-27 06:00] VITALS: BP 107/61
[2018-03-27] MEDS: LEVOTHYROXINE 100MCG TABLET (0.1MG) PO SCH (06:04)
[2018-03-27] MEDS: OLANZapine ORAL DISINTEGRATING TAB 5MG PO PRN (14:05)
--- NOTE | 2018-03-27 14:11 | MHHPE ---
DATE OF ADMISSION: 03/26/2018 CHIEF COMPLAINT: Feels suicidal. SUBJECTIVE: She is 52 years old. She is . is . They live together and their daughter, son-in-law, granddaughter, who is 8, as well as the patient's mother, who is quite elderly, all live with them. The patient has a history of mood fluctuations, periods of depression and irritability. Saychloé has been hospitalized on several occasions. She was last hospitalized on 2016. Has not been on any medicines for emotional difficulties for at least the last year and a half or so, possibly longer. Attends a clinic of sorts at [place], where she sees a Dr. Law. She says he is not a therapist, but manages a clinic and that there are plans to have her referred to the [facility] clinic, apparently. Has other medical difficulties, including hypothyroidism, uses 100 mcg of Synthroid. Sees a Dr. Rashid at [place], is primary care, has been doing that for the last couple of years. Says has generally been doing well until about eight weeks or so ago, has noticed her moods tend to fluctuate. At times has been irritable, at other times quite depressed and yet other times feels good, somewhat elated, but those periods do not last long and that has continued. 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 Says had gone to see Dr. Rashid a couple of days ago. Says there is some concern regarding her emotions. She told him she was fine, when in fact she was not feeling fine. Says went home, felt hopeless, suicidal, took a couple of extra pain pills that she had. Says did not mention this to anybody until later. Says was called by Dr. Rashid the following day, as apparently the office had been concerned regarding her state. She went to see Dr. Law and says was recommended to come here for an evaluation. She has also informed her , within the last couple of days, that she would want him looking after the rest of the family and making statements alluding to despair and hopelessness on her part and possible suicidality. She also indicates Dr. Rashdi had suggested that she start venlafaxine. She has not been on any psychotropics for a couple of years. The emergency room (ER) record also says she had planned to use the family shotgun to kill herself, but had convinced Dr. Law that she was okay. Says has had suicidal thoughts, but that they have not been steady. Says has been "more emotional" the last two weeks or so. Says looks after everyone else at home, including her mother, who is quite dependent on the patient. She further stressed that her son-in-law spends time at home, as he has not been working recently. Says matters could improve considerably if he were to work. Says generally does not get along with him. The patient was further upset when she found out Dr. Rashid is leaving. She has known him for two years and got along with him, and that has been a challenge. PAST PSYCHIATRIC HISTORY: As indicated above. Has had several hospitalizations in the past, last one was at [facility], in 2015. Has been seen as an outpatient over at the [facility] in [place], including telepsychiatry. Used to see Dr. Pollard. Says in the process of being referred to the [facility] [place] in [place]. It should also be noted I had seen her on consultation March 2017, when she had been hospitalized for medical concerns. Please refer to my consultation summary for details related to her state at the time, and background history as well. She was diagnosed with other specified bipolar and related disorders. It was recommended that she be started on mood stabilizer, such as Depakote. She has not been on any as far as I am aware. MEDICAL HISTORY: Has had chronic pain, a history of gastric bypass, underactive thyroid, mild obstructive sleep apnea, left shoulder pain, myeloproliferative disorder. She had a gastric bypass surgery done in 2001. MEDICATIONS: - Synthroid 100 mcg daily - She has also just started on venlafaxine a couple of days ago by primary care at 75 mg daily SOCIAL HISTORY: Is . is . Has other family members living with her, including her mother, daughter, son-in-law, granddaughter. MENTAL STATUS EXAMINATION: She is neat. She is cooperative. She was quite upset just before I saw her, as another patient had been making verbally uncomfortable statements. This had disturbed the patient, but she reconstituted, appeared mildly anxious, no abnormal movements noted. Speech normal in amount and rate. Affect somewhat labile. Vague on suicidal thoughts. No firm plans. No evidence of any psychosis. No homicidal ideas or intents. She is alert and oriented. Sensorium is clear. Cognition grossly intact. Intellect is average. Judgment is questionable. Insight fair. VITAL SIGNS: Blood pressure 132/78, pulse 70, temperature 98. INVESTIGATIONS: Complete blood count essentially within normal limits except for platelet count at 593, says it has generally been high (150-450). Urine toxicology essentially negative. Metabolic profile essentially within normal limits except for BUN at 20, alkaline phosphatase at 121 (45, 117). ASSESSMENT: 1. Other specified bipolar and related disorders. 2. Posttraumatic stress disorder by history. 3. Rule out bipolar type 1 disorder. As to the mood fluctuations, and they have been more challenging, particularly over the last several weeks, and has had suicidal thoughts, and given mood fluctuations, the taking effects of medications, thoughts of killing herself, including using a gun, all point to mood instability. PLAN: She is admitted to the inpatient psychiatry unit, placed on relevant precautions. I would suggest obtaining collateral information. She will receive a medicine consult, if indicated. Given the history of mood fluctuations, I would not recommend her using an antidepressant, will not prescribe her venlafaxine for now and after a discussion of the risks, benefits, drawbacks and alternatives, which she understands, will start her on Latuda at 20 mg at night, to be titrated upwards as indicated, to help with stabilization of moods. We will also encourage her to participate in activities on the unit. She will be discharged with followup once she is stable. Just before I saw her for the evaluation, she had put in a written request for discharge. We discussed this and I have concerns about that. She is aware of the legal process and at present, she needs staying in hospital. I do not believe, given the current evaluation, recent history, that she is safe enough for discharge. She indicates she would wish to get stabilized essentially and follow up. Followup appointment should be set up before she is discharged and the earliest that can be done is Wednesday (today is Wednesday). Her clinical condition is not safe enough for discharge. She says she put in the request more out of frustration, because of the response to one of the other patients. She was calm by the end of the interview. I would anticipate a 5-7 day stay. The assessment took 40 minutes.
[2018-03-27] MEDS: LURASIDONE 20 MG TAB (LATUDA) PO SCH (17:41)
[2018-03-27 18:00] VITALS: BP 136/70
[2018-03-27] MEDS: traZODone 50 MG TAB PO PRN (21:53)
[2018-03-28] MEDS: LEVOTHYROXINE 100MCG TABLET (0.1MG) PO SCH (06:08)
[2018-03-28 06:11] VITALS: BP 116/67
--- NOTE | 2018-03-28 09:38 | MHIPN ---
DATE: 03/27/2018 CHIEF COMPLAINT: Says feels better. SUBJECTIVE: Seen for followup, in the presence of staff. Says she slept well, moods have been good, feels somewhat less anxious. Says her visit with her went well. MENTAL STATUS EXAMINATION: She is neat. She is cooperative. No agitation. No psychomotor retardation. She is coherent. Affect is of fair range, she denies any suicidal thoughts or intents. No homicidal ideas or intents. No evidence of any psychosis at present. Cognition grossly intact. Judgment is improved, insight fair. ASSESSMENT: Other specified bipolar and related disorders. Post traumatic stress disorder by history. PLAN: She is started on Latuda at 20 mg daily, and we will look at titrating it upwards as indicated. I informed her that I had seen her last year, and later she seemed to remember it, and there were similar concerns at that time, in terms of mood fluctuations. She is continue with the Latuda at the current dose, she is to be encouraged to participate in activities in the unit. She wishes to rescind the recent request for discharge, and she will see the psychiatrist and treatment team tomorrow. She says would not wish to be discharged too soon either. VITAL SIGNS: Blood pressure 107/61, pulse 63, temperature 97.9.
[2018-03-28] MEDS ORDERED: MIRTAZAPINE 15 MG TAB PO PRN (10:45)
[2018-03-28] MEDS: OLANZapine ORAL DISINTEGRATING TAB 5MG PO PRN (11:16)
[2018-03-28] MEDS: LURASIDONE 20 MG TAB (LATUDA) PO SCH (17:45)
[2018-03-28 18:00] VITALS: BP 134/67
[2018-03-29] MEDS: LEVOTHYROXINE 100MCG TABLET (0.1MG) PO SCH (06:16)
[2018-03-29 06:45] VITALS: BP 119/60
--- NOTE | 2018-03-29 09:06 | HPE ---
DATE OF ADMISSION: 03/25/2018 HISTORY OF PRESENT ILLNESS: Please refer to psychiatric history and evaluation for further details on this admission. This examination and history is intended for medical issues, which may need treatment, followup or consultation on this 52-year-old female. ALLERGIES: TAPE. SOCIAL HISTORY: She is . She does not drink alcohol. She quit smoking 27 years ago. Recreational drug use is none. Her is a soldier, currently stationed at [employer]. Primary care provider is Dr. Wilkinson at [facility]. LABORATORY STUDIES: WBC was 7.6, hemoglobin 14.7, hematocrit 44.7, platelets 93. Electrolytes are normal. BUN 23, creatinine . Toxicology was negative. PAST MEDICAL HISTORY: Glaucoma, history of concussion, history of migraines, history of syncope. She has a loop recorder, she follows with Dr. Bradley. History of deep vein thrombosis (DVT) in the left leg in 2011. History of posttraumatic stress disorder (PTSD), history of vitamin D deficiency, history of anemia, history of thrombocytosis, JAK2 mutation, hypothyroidism. PAST SURGICAL HISTORY: Gastric bypass in 2001, appendectomy, cholecystectomy 1986. FAMILY HISTORY: Noncontributory. MEDICATIONS: - folic acid 1 mg by mouth daily - levothyroxine 100 mcg by mouth daily REVIEW OF SYSTEMS: Ten systems review was done and was unremarkable. Her only complaint was of some pain in her right heel when she wakes in the morning, feels like a stabbing in the bottom of her heel. She will followup with her primary care provider, Dr. Wilkinson at [place]. No redness or swelling. No history of trauma. PHYSICAL EXAMINATION: GENERAL: 52-year-old cooperative, obese female in no acute distress. Height 66 inches, weight 105 kg, Body Mass Index (BMI) 37.4. The patient is alert and oriented. HEENT: Pupils are equal and reactive to light. Extraocular muscles intact. Sclerae clear. Conjunctivae normal. No facial asymmetry. Pharynx, gums and tongue pink and moist. Tongue is midline. NECK: Supple without lymphadenopathy, thyromegaly or goiter. Carotids are 2+ without bruit. CHEST: Clear to auscultation without wheeze or retraction. HEART: Regular. ABDOMEN: Benign. Bowel sounds positive. GENITOURINARY/RECTAL: Not done. EXTREMITIES: Equal strength, full range of motion. No clubbing, cyanosis, and edema. Peripheral pulses equal and palpable bilaterally. SKIN: Warm and dry. IMPRESSION/PLAN: 1. Thrombocytosis, platelets are 93. Continue followup with her outpatient provider. 2. Hypothyroidism. TSH is therapeutic. Continue levothyroxine as ordered. 3. Right heel pain. Followup with primary care provider. 4. Hypertension, stable. 5. Loop recorder implantation. Continue to followup with Dr. Bradley. 6. Psychiatric plan per psychiatry. 7. No other acute medical issues.
--- NOTE | 2018-03-29 10:51 | MHIPNPDOC ---
[facility] Progress Note Progress Note DATE OF SERVICE: 03/28/18 HISTORY: She is 52 years old. She is . is . They live together and their daughter, son-in-law, granddaughter, who is 8, as well as the patient's mother, who is quite elderly, all live with them. The patient has a history of mood fluctuations, periods of depression and irritability. Says has been hospitalized on several occasions. She was last hospitalized on 2016. Has not been on any medicines for emotional difficulties for at least the last year and a half or so, possibly longer. Attends a clinic of sorts at [place], where she sees a Dr. Law. She says he is not a therapist, but manages a clinic and that there are plans to have her referred to the [facility] clinic, apparently. Has other medical difficulties, including hypothyroidism, uses 100 mcg of Synthroid. VITAL SIGNS: See below. NEW TEST RESULTS: See below CURRENT MEDICATIONS: See below. MENTAL STATUS EXAMINATION: Patient is a 52-year old female, who is alert, cooperative, well groomed in personal clothes, with good eye contact, pleasant, clooperative. Speech: Is normal rate, tone and volume. spontaneous and fluent. Language skills are good. Thought processes including: intact. Thought content: anxious thoughts about her illness. Abstract reasoning, and computation: good Description of associations: good Description of abnormal or psychotic thoughts: Denies active SI, but she has occasional passive SI, she denies AV hallucinations, denies HI Judgment: limited Insight: limited. Orientation: x 3 Recent and remote memory: intact Attention span and concentration: good Language: normal Fund of knowledge: average Mood: sad/anxious. Affect: congruent with mood DIAGNOSES: 1. Other specified bipolar and related disorders. 2. Posttraumatic stress disorder by history. 3. Rule out bipolar type 1 disorder. ASSESSMENT: Patient said she would stay at [facility], she admits she was very anxious because there was another patient that was very agitated and the patient remained in her room to avoid provocations and confrontations but since the patient is leaving today (03/28/18), she has decided to stay. She admits she needs this hospitalization because she has been unstable and she doesn't want to harm herself, nor her family. MANAGEMENT PLAN: wILL START HER ON rEMERON 45 MGS po qhs FOR INSOMNIA, WILL DISCONTINUE tRAZODONE AND WILL INCREASE LATUDA TO 40 MGS TIME SPENT: 20 minutes. Vital Signs Vital Signs Date Time Temp Pulse Resp B/P (MAP) Pulse Ox O2 Delivery O2 Flow Rate FiO2 03/29/18 06:45 97.0 58 16 119/60 (79) 03/28/18 06:11 Room Air 03/25/18 16:37 95 Current Medications Current Medications Acetaminophen (Tylenol Tab) 650 mg Q6HP PRN PO HEADACHE or DISCOMFORT Last administered on 03/26/18at 09:43; Start 03/25/18 at 20:30 Al Hydrox/Mg Hydrox/Simethicone (Mylanta) 30 ml Q4HP PRN PO HEARTBURN/INDIGESTION; Start 03/25/18 at 20:30 Home Med (Med Rec Complete!) ASDIRECTED XX ; Start 03/25/18 at 20:30; Stop 03/25/18 at 20:30; Status DC Levothyroxine Sodium (Synthroid) 100 mcg DAILY@06 PO Last administered on 03/29/18at 06:16; Start 03/27/18 at 06:00 Lurasidone HCl (Latuda) 20 mg DAILY@18 PO Last administered on 03/27/18at 17:41; Start 03/26/18 at 18:00; Stop 03/28/18 at 10:34; Status DC Lurasidone HCl (Latuda) 40 mg DAILY@18 PO Last administered on 03/28/18at 17:45; Start 03/28/18 at 18:00 Magnesium Hydroxide (Milk Of Magnesia) 30 ml DAILYPRN PRN PO CONSTIPATION; Start 03/25/18 at 20:30 Mirtazapine (Remeron) 30 mg QHS PRN PO INSOMNIA Last administered on 03/28/18at 22:12; Start 03/28/18 at 10:45 Olanzapine (ZyPREXA ZYDIS) 5 mg Q4HP PRN PO AGITATION Last administered on 03/28/18 11:16; Start 03/25/18 at 20:30 Trazodone HCl (Desyrel) 50 mg QHSP PRN PO INSOMNIA Last administered on 03/27/18 21:53; Start 03/25/18 at 20:30; Stop 03/28/18 at 10:35; Status DC Allergies Coded Allergies: TAPE (Verified Allergy, Intermediate, HIVES, 11/12/17) WILL ESCOBAR MD Mar 29, 2018 10:50
--- NOTE | 2018-03-29 12:41 | MHIPNPDOC ---
[facility] Progress Note Progress Note DATE OF SERVICE: 03/29/18 HISTORY: She is 52 years old. She is . is . They live together and their daughter, son-in-law, granddaughter, who is 8, as well as the patient's mother, who is quite elderly, all live with them. The patient has a history of mood fluctuations, periods of depression and irritability. Says has been hospitalized on several occasions. She was last hospitalized on 2016. Has not been on any medicines for emotional difficulties for at least the last year and a half or so, possibly longer. Attends a clinic of sorts at [place], where she sees a Dr. Law. She says he is not a therapist, but manages a clinic and that there are plans to have her referred to the [facility] clinic, apparently. Has other medical difficulties, including hypothyroidism, uses 100 mcg of Synthroid. VITAL SIGNS: See below. NEW TEST RESULTS: See below CURRENT MEDICATIONS: See below. MENTAL STATUS EXAMINATION: Patient is a 52-year old female, who is alert, cooperative, well groomed in personal clothes, with good eye contact, pleasant, clooperative. Speech: Is normal rate, tone and volume. spontaneous and fluent. Language skills are good. Thought processes including: intact. Thought content: anxious thoughts about her illness. Abstract reasoning, and computation: good Description of associations: good Description of abnormal or psychotic thoughts: Denies active SI, but she has occasional passive SI, she denies AV hallucinations, denies HI Judgment: limited Insight: limited. Orientation: x 3 Recent and remote memory: intact Attention span and concentration: good Language: normal Fund of knowledge: average Mood: sad/anxious. Affect: congruent with mood DIAGNOSES: 1. Other specified bipolar and related disorders. 2. Posttraumatic stress disorder by history. 3. Rule out bipolar type 1 disorder. ASSESSMENT: Patient said she was able to sleep well last night after she took Remeron but before she was able to fall asleep, she felt that her hert was racing and she felt as if she was not doing well. I'll discontinue Remeron and start her on Seroquel 100 mgs PO QHS which at the same time would boost the antidepressant effect of Prozac. she mentions she can't have high doses of medications because she develops itching, so, I added Benadryl 50 mgs PO BIDP to counteract extrapyramidal side effects that she could have because she is receiving neuroleptics and in case she would develop an allergy. I asked her to contact the Nurses immediately if she develops one of these side effects. PLAN: Please see above TIME SPENT: 20 MINUTES Vital Signs Vital Signs Date Time Temp Pulse Resp B/P (MAP) Pulse Ox O2 Delivery O2 Flow Rate FiO2 03/29/18 06:45 97.0 58 16 119/60 (79) 03/28/18 06:11 Room Air 03/25/18 16:37 95 Current Medications Current Medications Acetaminophen (Tylenol Tab) 650 mg Q6HP PRN PO HEADACHE or DISCOMFORT Last administered on 03/26/18at 09:43; Start 03/25/18 at 20:30 Al Hydrox/Mg Hydrox/Simethicone (Mylanta) 30 ml Q4HP PRN PO HEARTBUR N/INDIGESTION; Start 03/25/18 at 20:30 Diphenhydramine HCl (Benadryl) 50 mg BIDP PRN PO ANXIETY; Start 03/29/18 at 12:45; Status UNV Home Med (Med Rec Complete!) ASDIRECTED XX ; Start 03/25/18 at 20:30; Stop 03/25/18 at 20:30; Status DC Levothyroxine Sodium (Synthroid) 100 mcg DAILY@06 PO Last administered on 03/29/18at 06:16; Start 03/27/18 at 06:00 Lurasidone HCl (Latuda) 20 mg DAILY@18 PO Last administered on 03/27/18at 17:41; Start 03/26/18 at 18:00; Stop 03/28/18 at 10:34; Status DC Lurasidone HCl (Latuda) 40 mg DAILY@18 PO Last administered on 03/28/18at 17:45; Start 03/28/18 at 18:00 Magnesium Hydroxide (Milk Of Magnesia) 30 ml DAILYPRN PRN PO CONSTIPATION; Start 03/25/18 at 20:30 Mirtazapine (Remeron) 30 mg QHS PRN PO INSOMNIA Last administered on 03/28/18at 22:12; Start 03/28/18 at 10:45; Stop 03/29/18 at 12:31; Status DC Olanzapine (ZyPREXA ZYDIS) 5 mg Q4HP PRN PO AGITATION Last administered on 03/28/18at 11:16; Start 03/25/18 at 20:30 Quetiapine Fumarate (SEROquel) 100 mg QHS PO ; Start 03/29/18 at 21:00; Status UNV Trazodone HCl (Desyrel) 50 mg QHSP PRN PO INSOMNIA Last administered on 03/27/18at 21:53; Start 03/25/18 at 20:30; Stop 03/28/18 at 10:35; Status DC Allergies Coded Allergies: TAPE (Verified Allergy, Intermediate, HIVES, 11/12/17) WILL ESCOBAR MD Mar 29, 2018 12:41
[2018-03-29] MEDS ORDERED: diphenhydrAMINE 50 MG CAP PO PRN (12:45)
[2018-03-29] MEDS: LURASIDONE 20 MG TAB (LATUDA) PO SCH (17:54)
[2018-03-29 18:00] VITALS: BP 147/85
[2018-03-29] MEDS ORDERED: QUEtiapine FUMARATE 100 MG TAB PO SCH (21:00)
[2018-03-29] MEDS: LIDOCAINE 4% CREAM 5GM (LMX4) TOP SCH (21:29)
[2018-03-30] MEDS: LEVOTHYROXINE 100MCG TABLET (0.1MG) PO SCH (06:13)
[2018-03-30 06:36] VITALS: BP 137/69
[2018-03-30] MEDS: LIDOCAINE 4% CREAM 5GM (LMX4) TOP SCH (08:41)
[2018-03-30] MEDS ORDERED: LIDO4CR TOP (13:22)
[2018-03-30] MEDS ORDERED: DIPH50CA PO (13:22)
[2018-03-30] MEDS ORDERED: LATU20TA PO (13:22)
[2018-03-30] MEDS ORDERED: QUET1TAB8 PO (13:22)
--- NOTE | 2018-03-30 16:56 | MHDSPDOC ---
[facility] Discharge Summary Discharge Summary DATE OF ADMISSION: Mar 25, 2018 at 20:21 DATE OF DISCHARGE: Mar 30, 2018 at 14:00 DISCHARGE DIAGNOSES: 1. bipolar 2 disorder 2. Posttraumatic stress disorder by history. REASON FOR ADMISSION: As per Dr. Ellis: "She is 52 years old. She is . is . They live together and their daughter, son-in-law, granddaughter, who is 8, as well as the patient's mother, who is quite elderly, all live with them. The patient has a history of mood fluctuations, periods of depression and irritability. Says has been hospitalized on several occasions. She was last hospitalized on 2015. Has not been on any medicines for emotional difficulties for at least the last year and a half or so, possibly longer. Attends a clinic of sorts at [place], where she sees a Dr. Law. She says he is not a therapist, but manages a clinic and that there are plans to have her referred to the [facility] clinic, apparently. Has other medical difficulties, including hypothyroidism, uses 100 mcg of Synthroid. CONSULTANTS INVOLVED: None TREATMENT AND PROGRESS ON THE UNIT : patient had decided to leave on Wednesday because she had been annoyed with other patient's behavior, but this other patient was discharged, so this patient decided to stay. she said she was having a good response to Latuda, she said she never thought, was never told she could have bipolar disorder, however she reports symptoms of enid, not as frequent or as intense as those symptoms of depression, but for example, she reports shopping and spending sprees that have caused problems with her . patient reported having problems with her son in law who is not cooperative at home. Says her has told her she enables her daughter and son in law to be like that because they don't contribute much to the economy of the house, neither they do much to help with house chores, but she doesn't want to get from her granddaughter and her daughter has threatened her that she is not going to be able to see the child if she asks them to leave. Patient has had a good response to medication. she has been pleasant, calm and cooperative. Has denied medication side effects HOSPITAL COURSE: As above DISCHARGE ASSESSMENT: Not suicidal, not homicidal, not psychotic MENTAL STATUS EXAMINATION ON DISCHARGE: Patient is a 52-year old female, who is alert, cooperative, well groomed in personal clothes, with good eye contact, pleasant, cooperative. Speech: Is normal rate, tone and volume. Spontaneous and fluent. Language skills are good. Thought processes including: intact. Thought content: goal orientated, less anxious Abstract reasoning, and computation: good Description of associations: good Description of abnormal or psychotic thoughts: Denies SI, she denies AV hallucinations, denies HI, denies thought delusions Judgment: limited Insight: improving Orientation: x 3 Recent and remote memory: intact Attention span and concentration: good Language: normal Fund of knowledge: average Mood: euthymic Affect: congruent with mood MEDICATIONS ON DISCHARGE: Scheduled Folic Acid (Folic Acid) 1 Mg Tab, 1 MG PO QPM, (Reported) TAKES AT 1800. Levothyroxine Sodium (Synthroid) 100 Mcg Tab, 100 MCG PO DAILY, (Reported) Lidocaine HCl (Anecream) 1 Dose/5 Gm Cream, 1 DOSE TOP BID for heel pain, #1 apply to right heel Lurasidone Hydrochloride (Latuda) 20 Mg Tab, 40 MG PO DAILY@18 for MOOD , #14 pATIENT MUST TAKE HER MEDICATION WITH HER MEAL. Quetiapine Fumerate (Quetiapine Fumarate) 100 Mg Tab, 100 MG PO QHS for MOOD/INSOMNIA, #7 Scheduled PRN Diphenhydramine HCl (Diphenhydramine HCl) 50 Mg Cap, 50 MG PO BIDP PRN for ANXIETY, #14 PLAN/FOLLOWUP ARRANGEMENTS: Follow Up Care Education Label * Mental Health Appt 1 * Mental Health [facility] * Established With This Provider No * Therapist Lexus * Date Apr 05, 2018 * Time 14:00 Follow Up Care Education Label * Medical * Medical Follow Up [facility] * Established With This Provider Yes * Therapist MURTAZA WARREN/CHRISTIANO TEAM * Date Apr 07, 2018 * Time 11:50 * The amount of time spent in the coordination of care for this patient was approximately 30 minutes. Vital Signs/I&Os Vital Signs Date Time Temp Pulse Resp B/P (MAP) Pulse Ox O2 Delivery O2 Flow Rate FiO2 03/30/18 06:36 98.4 59 16 137/69 (91) 03/28/18 06:11 Room Air 03/25/18 16:37 95 Medications Scheduled Folic Acid (Folic Acid) 1 Mg Tab, 1 MG PO QPM, (Reported) TAKES AT 1800. Levothyroxine Sodium (Synthroid) 100 Mcg Tab, 100 MCG PO DAILY, (Reported) Lidocaine HCl (Anecream) 1 Dose/5 Gm Cream, 1 DOSE TOP BID for heel pain, #1 apply to right heel Lurasidone Hydrochloride (Latuda) 20 Mg Tab, 40 MG PO DAILY@18 for MOOD , #14 pATIENT MUST TAKE HER MEDICATION WITH HER MEAL. Quetiapine Fumerate (Quetiapine Fumarate) 100 Mg Tab, 100 MG PO QHS for MOOD/INSOMNIA, #7 Scheduled PRN Diphenhydramine HCl (Diphenhydramine HCl) 50 Mg Cap, 50 MG PO BIDP PRN for ANXIETY, #14 Allergies Coded Allergies: TAPE (Verified Allergy, Intermediate, HIVES, 11/12/17) WILL ESCOBAR MD Mar 30, 2018 16:51
== END 2018-03-30 14:00 | disposition home or self-care (01) | DRG 885 ==
LOC: M ED 16:37 → M ED INP 20:21 → M PSY 21:10
PROVIDERS: ADMIT Psychiatry & Neurology Psychiatry; ATTEND Psychiatry & Neurology Psychiatry
DX: F31.81 Bipolar II disorder (principal); D47.3 Essential (hemorrhagic) thrombocythemia; F43.10 Post-traumatic stress disorder, unspecified; G89.29 Other chronic pain; I10 Essential (primary) hypertension; E03.9 Hypothyroidism, unspecified; G47.33 Obstructive sleep apnea (adult) (pediatric); M79.671 Pain in right foot; Z98.84 Bariatric surgery status; Z79.899 Other long term (current) drug therapy; Z87.891 Personal history of nicotine dependence; Z86.718 Personal history of other venous thrombosis and embolism; Z90.49 Acquired absence of other specified parts of digestive tract; Z91.048 Other nonmedicinal substance allergy status

== ENCOUNTER 2018-04-08 15:16 | Day surgery (SDC) | payer OTHER ==
[~2018-04-08] VITALS: Ht 167.6 cm; Wt 100.5 kg
[~2018-04-08 15:16] MED LIST changes: +DIPH50CA PO; +LATU20TA PO; +LEVO100T5 PO; +LIDO4CR TOP; +QUET1TAB8 PO
[2018-04-08 15:38] LABS: BASO # 0.1 10^3/uL (0.0-0.2); BASO % 0.8 % (0.0-1.0); EOS # 0.2 10^3/uL (0.0-0.50); EOS % 1.9 % (0.0-3.0); HEMATOCRIT 43.8 % (36.0-47.0); HEMOGLOBIN 14.3 g/dl (12.0-15.5); LYMPH # 1.4 10^3/uL (1.5-4.5); LYMPH % 14.1 % (24.0-44.0); MEAN CORPUSCULAR HEMOGLOBIN 26.1 pg (27.0-33.0); MEAN CORPUSCULAR HGB CONC 32.6 g/dl (32.0-36.5); MEAN CORPUSCULAR VOLUME 79.9 fl (80.0-96.0); MONO # 0.4 10^3/uL (0.0-0.8); MONO % 3.8 % (0.0-5.0); NEUTROPHILS # 7.9 10^3/uL (1.8-7.7); NEUTROPHILS % 79.1 % (36.0-66.0); PLATELET COUNT, AUTOMATED 578 10^3/uL (150-450); RED BLOOD COUNT 5.48 10^6/uL (4.00-5.40)
[2018-04-08] MEDS ORDERED: HYDROMORPHONE HCL 0.5 MG/ 0.5 ML SYRINGE (J1170 PER 1) IV PRN ×2 (15:45→21:00)
[2018-04-08] MEDS ORDERED: MORPHINE 4 MG/ML 1ML VIAL/SYRINGE (J2270) IV ONE (15:45)
[2018-04-08] MEDS ORDERED: ONDANSETRON 4MG/2ML VIAL (J2405) IV ONE (15:45)
[2018-04-08] MEDS ORDERED: NS 1,000 ML IV ONE (15:45)
[2018-04-08 16:06] LABS: CREATININE FOR GFR 1.06 MG/DL (0.55-1.30); GLOMERULAR FILTRATION RATE 57.7 (>51); POTASSIUM SERUM 4.1 MEQ/L (3.5-5.1)
[2018-04-08] MEDS ORDERED: KETOROLAC 30 MG/ML VIAL (J1885) IV ONE (16:30)
[2018-04-08] MEDS ORDERED: HYDR50TA70 PO (17:58)
[2018-04-08] MEDS ORDERED: LITH150C PO (17:58)
[2018-04-08] MEDS ORDERED: LIDO4CR TOP (17:58)
[2018-04-08] MEDS ORDERED: MAGN250T7 PO (17:58)
[2018-04-08] MEDS ORDERED: LATU40TA PO (17:58)
[2018-04-08] MEDS ORDERED: LAMO25TA4 PO (17:58)
--- NOTE | 2018-04-08 18:08 | REP ---
Clinical: Left-sided pain. Technique: Axial noncontrast images from the lung bases to the pubic symphysis with coronal and sagittal re-formations. Comparison: 01/09/2016. Findings: Acute left-sided obstructive uropathy is appreciated with hydronephrosis secondary to a 12 mm obstructing calculus in the ureteropelvic junction (images [id number]). 5 mm nonobstructing left renal calculus and 3 mm nonobstructing right renal calculus also identified. There is a 6 mm calculus in the deep left maddie pelvis (image 134) which may reflect a second obstructing calculus at the ureterovesicle junction as well. The bladder is collapsed. Liver, spleen, pancreas, and bilateral adrenal glands are normal. The patient is status post cholecystectomy and gastric bypass surgery. No evidence for bowel obstruction. Pelvis demonstrates collapsed bladder and evidence for prior hysterectomy. No ascites. No adenopathy. No free air. Abdominal aorta without aneurysm. Musculoskeletal structures are intact. Lung bases are clear. Impression: 1. Acute left-sided obstructive uropathy with a 12 mm obstructing calculus at the ureteropelvic junction and a possible 5 mm calculus in the left ureterovesical junction. Bilateral intrarenal calculi noted as above. Electronically Signed by Velasquez Mack MD 04/08/2018 05:59 P
--- NOTE | 2018-04-08 19:23 | REP ---
Clinical: Urinary tract stone. Technique: Single supine view of the abdomen and pelvis. Findings: A 14 mm calculus is identified in the region of the left ureteropelvic junction as documented on recent CT. A smaller 4-5 mm calculus in the left kidney also identified. Evaluation of the right kidney is limited due to overlying bowel gas. A 5 mm calcification in the left maddie pelvis is nonspecific and may represent phlebolith versus distal left ureteral stone. Bowel gas pattern is nonspecific. Surgical clips in the left upper quadrant. Skeletal structures are intact. Impression: 1. 14 mm calculus in the region of the left ureteropelvic junction along with 5 mm nonobstructing left lower pole calculus. 2. 5 mm calculus in the left maddie pelvis may represent phlebolith versus distal ureteral calculus. Electronically Signed by Velasquez Mack MD 04/08/2018 07:01 P
[2018-04-08] MEDS ORDERED: ZOSYN 3.375 GM VIAL (J2543) As Ordered ONE (20:19)
[2018-04-08] MEDS ORDERED: CONRAY-60 60% 50ML VIAL (Q9961) As Ordered ONE (20:23)
[2018-04-08] MEDS ORDERED: LIDOCAINE 2% INJ 100 MG/5 ML SDV (FOR ANES.) As Ordered ONE (20:24)
[2018-04-08] MEDS ORDERED: MIDAZOLAM INJ 2 MG/2 ML VIAL (J2250) As Ordered ONE (20:24)
[2018-04-08] MEDS ORDERED: fentaNYL 100 MCG/2 ML INJECTION (J3010) As Ordered ONE (20:25)
[2018-04-08] MEDS ORDERED: LIDOCAINE 2% 5ML JELLY UROJET As Ordered ONE (20:53)
[2018-04-08] MEDS ORDERED: fentaNYL 100 MCG/2 ML INJECTION (J3010) IV PRN (21:00)
[2018-04-08] MEDS ORDERED: LR 1,000 ML IV SCH (21:00)
[2018-04-08] MEDS ORDERED: ONDANSETRON 4MG/2ML VIAL (J2405) IV PRN (21:00)
[2018-04-08] MEDS ORDERED: PERCOCET 5MG/325MG TAB PO PRN (21:00)
[2018-04-08] MEDS ORDERED: TYLE500T78 PO (21:09)
[2018-04-08] MEDS ORDERED: MAG-400T7 PO (21:09)
[2018-04-08] MEDS ORDERED: AMOX500T2 PO (21:09)
[2018-04-08] MEDS ORDERED: FLOM0.4C39 PO (21:09)
[2018-04-08] MEDS ORDERED: PERCOCET 5MG/325MG TAB As Ordered ONE (21:11)
[2018-04-08] MEDS ORDERED: METOCLOPRAMIDE INJ 10MG/2ML VIAL (J2765) As Ordered ONE (21:40)
[2018-04-08] MEDS ORDERED: METOCLOPRAMIDE INJ 10MG/2ML VIAL (J2765) IV ONE (21:40)
[2018-04-08 22:30] VITALS: BP 140/67
--- NOTE | 2018-04-08 23:53 | ROOPDOC ---
[facility] Report Of Operation Report of Operation DATE OF PROCEDURE: 04/08/18 PREPROCEDURE DIAGNOSES: LEFT URETERAL PELVIC JUNCTION STONE; OBSTRUCTIVE UROPATHY; POSTPROCEDURE DIAGNOSES: SAME. PROCEDURE: CYSTOSCOPY; RETROGRADE PYELOGRAM AND LEFT URETERAL STENT PLACEMENT (6FX 22-30CM). SURGEON: ADDIS BRONSON MD [facility] ANESTHESIA: MAC (Dr. VAZ). ESTIMATED BLOOD LOSS: Approximately <1 mL. COMPLICATIONS: NONE. REMARKS/FINDINGS: UPJ STONE (triangular); stone visible on KUB. DESCRIPTION OF PROCEDURE: AFTER INFORMED CONSENT SIGNED BY PATIENT AND HER , PATIENT WAS TAKEN TO THE OR FOR ROUTINE TIME OUT AND ANESTHESIA INDUCTION. SHE WAS PLACED IN LITHOTOMY WHERE SHE WAS PREPPED AND DRAPED AND 21 F CYSTOSCOPE SHEATH WITH 30 DEGREE SCOPE WAS PLACED INTO URETHRA ADVANCED TO THE BLADDER WHERE THE LEFT URETER WAS INTUBATED WITH 5 F OPEN ENDED CATHETER. NON DILUTED CONRAY WAS PLACED UP THE CATHETER AND FILLING DEFECT COULD BE SEEN IN THE RENAL PELVIS ASSOCIATED WITH STONE ONCE THE RETROGRADE WAS COMPLETE. 0.035 GUIDEWIRE (MOTION) WAS ADVANCED TO THE RENAL PELVIS. THEN IN EXCHANGE FOR THE OPEN ENDED CATHETER THE 6 X 22-30CM CATHETER WAS ADVANCED. CURL AT THE RENAL PELVIS AND BLADDER WERE VISUALIZED BOTH DIRECTLY AND INDIRECTLY WITH SCOPE AND FLUOROSCOPY, RESPECTIVELY. PT TOLERATED THE PROCEDURE WELL AND WAS TAKEN TO THE RECOVERY ROOM IN STABLE CONDITION. THE PHOTOS WERE SHOWN TO THE FAMILY (HER AND ) IN ADVANCED RECOVERY. WHEN THE PT HAS HAD SOME RECOVERY WE CAN PLAN ESWL. STONE WAS VISIBLE OF KUB. discussed with her and her calling the office on wednesday for an appointment. pt was experiencing some left lower quad cramping. she was not offered oxycodone. she was encouraged to use tylenol; she attempted suicide with narcotics 1.5 weeks ago. Addis Bronson MD Apr 08, 2018 21:32
--- NOTE | 2018-04-09 08:28 | REP ---
Clinical: Ureteral stent placement. Technique: Intraoperative fluoroscopic imaging using portable C-arm technique. Findings: Images demonstrate left-sided hydronephrosis with placement of a ureteral stent extending into an upper pole odilon. Filling defect in the renal pelvis cannot be excluded. Impression: Status post left ureteral stent placement. Left hydronephrosis. Possible filling defect in the renal pelvis. Electronically Signed by Velasquez Mack MD 04/09/2018 08:19 A
[2018-04-13] MEDS ORDERED: PROB250C PO (14:31)
[2018-04-13] MEDS ORDERED: TYLETAB14 PO (14:31)
== END 2018-04-08 22:38 | disposition home or self-care (01) ==
LOC: M ED 15:16 → M SDC 18:10
PROVIDERS: ATTEND Urology Pediatric Urology
DX: N20.1 Calculus of ureter (principal); E66.9 Obesity, unspecified; F41.9 Anxiety disorder, unspecified; F32.9 Major depressive disorder, single episode, unspecified; Z79.899 Other long term (current) drug therapy
CPT/HCPCS: 52332; 74018; 74176; 74420; 80048; 81001; 85025; 87086; 99284; C1769; C2617; J1170; J1885; J2250; J2270; J2405; J2765; J3010; Q9961

== ENCOUNTER 2018-04-14 06:53 | Day surgery (SDC) | payer OTHER ==
[~2018-04-14] VITALS: Ht 167.6 cm; Wt 105.7 kg
[~2018-04-14 06:53] MED LIST changes: +AMOX500T2 PO; +FLOM0.4C39 PO; +HYDR50TA70 PO; +LAMO25TA4 PO; +LATU40TA PO; +LITH150C PO; +MAG-400T7 PO; +MAGN250T7 PO; +PROB250C PO; +TYLE500T78 PO; +TYLETAB14 PO
[2018-04-14] MEDS ORDERED: ZOSYN 3.375 GM VIAL (J2543) As Ordered ONE (07:03)
[2018-04-14] MEDS ORDERED: PROPOFOL 200 MG/20 ML VIAL As Ordered ONE (07:15)
[2018-04-14] MEDS ORDERED: MIDAZOLAM INJ 2 MG/2 ML VIAL (J2250) As Ordered ONE (07:15)
[2018-04-14] MEDS ORDERED: fentaNYL 100 MCG/2 ML INJECTION (J3010) As Ordered ONE (07:15)
[2018-04-14] MEDS ORDERED: LIDOCAINE 2% INJ 100 MG/5 ML SDV (FOR ANES.) As Ordered ONE (07:15)
[2018-04-14] MEDS ORDERED: NS 1,000 ML IV SCH (07:15)
[2018-04-14] MEDS ORDERED: PIPERACILLIN/TAZOBACTAM SOD 3.375 GM in D5W MINI-BAG PLUS 50 ML IV ONE (07:15)
--- NOTE | 2018-04-14 07:43 | REP ---
Clinical: ESWL. Technique: Single supine view of the abdomen and pelvis. Findings: A left ureteral stent is identified in satisfactory position. There appears to be a 17 mm nonobstructing calculus in the lower pole of the left kidney. Further nephroureterolithiasis cannot be excluded are identified. Evaluation is limited by bowel gas. The skeletal structures are intact. Impression: Ureteral stent in satisfactory position. 17 mm calculus in the lower pole left kidney. Electronically Signed by Velasquez Mack MD 04/14/2018 07:35 A
[2018-04-14] MEDS ORDERED: ONDANSETRON 4MG/2ML VIAL (J2405) As Ordered ONE (07:44)
[2018-04-14] MEDS ORDERED: ePHEDrine SULFATE 25 MG/5 ML(5MG/ML) SYRINGE As Ordered ONE (08:10)
[2018-04-14] MEDS ORDERED: OXAY1TAB PO (08:46)
[2018-04-14] MEDS ORDERED: AMOX500T2 PO (08:46)
--- NOTE | 2018-04-14 09:28 | REP ---
Clinical: Extracorporeal shock wave lithotripsy. Technique: Portable supine view of the abdomen and pelvis. Comparison: 04/14/2018 at 06:30 a.m. Findings: Left ureteral stent again identified. There is a vague suggestion for continued calculus in the lower pole left kidney. No significant ureteral or bladder opacifications are identified. Bowel gas pattern is nonspecific. Skeletal structures are intact. Impression: Continued evidence for nonobstructing left renal calculi. No obvious ureteral or bladder calcifications identified. Electronically Signed by Velasquez Mack MD 04/14/2018 09:20 A
--- NOTE | 2018-04-14 09:29 | ROOPDOC ---
[facility] Report Of Operation Report of Operation DATE OF PROCEDURE: 04/14/18 PREPROCEDURE DIAGNOSIS: left renal kidney stones x2. POSTPROCEDURE DIAGNOSIS: same PROCEDURE: left extracorporeal shock wave lithotripsy. SURGEON: Gisela Cook MD M[facility] HAM CLERK: None. ANESTHESIA: Monitored anesthesia care (MAC)-Dr. Redman and Victoria Mcintosh (TRACTOR TRAILER TRUCK DRIVER). OPERATIVE INDICATIONS: This is a 52-year-old female who on recent CAT scan was found to have obstructing left renal stone ureteropelvic 14mm size and smaller lower pole stone. She was brought to the operating room today for above-listed procedure. Findings: 1.4mm stone in left renal pelvis and 6mm stone in left lower pole. Patient grade 3; pain relief IV meds per anesthesia. DESCRIPTION OF PROCEDURE: The patient was brought to the operating room and monitored anesthesia care (MAC) was administered. Prophylactic antibiotics (Zosyn 3.375g IVOCTOR) were infused. After informed consent she was brought to the operative suite where the routine time out was completed with all provider stakeholders agreed on location, equipment, procedure and any potential dangers for the patient that could be avoided. Fluoroscopy and simultaneous ultrasound using the Piezolith 3000 was then utilized to monitor stone position and executed stone fragmentation. Shock waves were then delivered to the left-sided kidney stones, ungated. First 100 shocks to the renal pelvis stone was at levels slowly jess to 20 from 1 and then 2900 shocks where done at 20. The lower pole stone was at 20 level for the entirety. There were no arrhythmias. The stones did appear to fragment well for the larger stone (left renal pelvis stone) and excellent to the smaller stone (lower pole, left) After 3000 shocks to the renal pelvis, the patient was then repositioned for the left-sided extracorporeal shockwave lithotripsy and 500 shocks to the lower pole stone were delivered. The patient was then awakened from anesthesia and transported to the recovery room in stable condition. Estimated blood loss: 0 mL. Complications: None. Specimens: None. PLAN: The patient will KUB today after the procedure and a followup KUB in a few weeks prior to the visit to assess for residual stone burden. The patient will be offered a small amount of narcotics given the ESWL described above. She is cautioned to use sparingly given her recent attempted suicide history. She will be sent home on antibiotic coverage for a few days. She is encouraged to hydrate well (3l/day); void [id number]; expect blood and clots in her urine; she is avoid ibuprofen, nsaids, aspirin and other blood thinners for 7-10 days. She is encouraged to use mag oxide, potassium citrate and flomax as prescribe. Gisela Cook MD Apr 14, 2018 08:39
[2018-04-14] MEDS ORDERED: PERCOCET 5MG/325MG TAB As Ordered ONE (09:31)
[2018-04-14] MEDS ORDERED: fentaNYL 100 MCG/2 ML INJECTION (J3010) IV PRN (09:45)
[2018-04-14] MEDS ORDERED: ONDANSETRON 4MG/2ML VIAL (J2405) IV PRN (09:45)
[2018-04-14] MEDS ORDERED: PERCOCET 5MG/325MG TAB PO PRN (09:45)
[2018-04-14 10:00] VITALS: BP 127/73
== END 2018-04-14 10:00 | disposition home or self-care (01) ==
LOC: M SDC 06:53
PROVIDERS: ATTEND Urology Pediatric Urology
DX: N20.0 Calculus of kidney (principal); E03.9 Hypothyroidism, unspecified; H40.9 Unspecified glaucoma; I10 Essential (primary) hypertension; I49.9 Cardiac arrhythmia, unspecified; K59.00 Constipation, unspecified; R10.13 Epigastric pain; M54.2 Cervicalgia; F41.9 Anxiety disorder, unspecified; R20.2 Paresthesia of skin; F31.9 Bipolar disorder, unspecified; F32.9 Major depressive disorder, single episode, unspecified; R23.3 Spontaneous ecchymoses; E55.9 Vitamin D deficiency, unspecified; R55 Syncope and collapse; M17.0 Bilateral primary osteoarthritis of knee; R06.02 Shortness of breath; R06.83 Snoring; G47.30 Sleep apnea, unspecified; E66.9 Obesity, unspecified; Z68.37 Body mass index [BMI] 37.0-37.9, adult; Z91.048 Other nonmedicinal substance allergy status; Z79.899 Other long term (current) drug therapy; Z87.891 Personal history of nicotine dependence; Z98.84 Bariatric surgery status; Z86.718 Personal history of other venous thrombosis and embolism; Z90.710 Acquired absence of both cervix and uterus; Z95.818 Presence of other cardiac implants and grafts
CPT/HCPCS: 50590; 74018; J2250; J2405; J2543; J3010

== ENCOUNTER → 2018-05-05 | Outpatient (CLI) | payer OTHER ==
[~2018-05-05] MED LIST changes: +OXAY1TAB PO
[2018-05-05 19:06] LABS: APPEARANCE, URINE HAZY (CLEAR); BACTERIA, URINE AUTO 1+ (NEGATIVE); BILIRUBIN, URINE AUTO NEGATIVE (NEGATIVE); BLOOD, URINE BLOOD 3+ (NEGATIVE); COLOR, URINE YELLOW (YELLOW); GLUCOSE, URINE (UA) AUTO 1+ mg/dL (NEGATIVE); KETONE, URINE AUTO NEGATIVE (NEGATIVE); LEUKOCYTE ESTERASE, URINE AUTO 2+ (NEGATIVE); MUCUS, URINE SMALL (NEGATIVE); NITRITE, URINE AUTO NEGATIVE (NEGATIVE); PROTEIN, URINE AUTO 1+ mg/dL (NEGATIVE); RBC, URINE AUTO 89 /HPF (0-3); SPECIFIC GRAVITY URINE AUTO 1.021 (1.002-1.035); SQUAMOUS EPITHELIAL CELL UR AU 5 /HPF (0-6); UROBILINOGEN, URINE AUTO 0.2 mg/dL (0.0-2.0); WBC, URINE AUTO 12 /HPF (0-3)
--- NOTE | 2018-05-06 11:43 | REP ---
Clinical: Nephrolithiasis. Technique: Single supine view of the abdomen and pelvis. Comparison: 04/14/2018. Findings: Left ureteral stent in satisfactory position. 6 mm lower pole left renal calculus suggested. Further evaluation of the urinary tract system is limited due to overlying bowel gas and technique. No bowel obstruction. Skeletal structures are intact and stable. Impression: Left ureteral stent with suspected nonobstructing left renal calculus. Electronically Signed by Velasquez Mack MD 05/06/2018 11:35 A
== END ==
LOC: M SMT 13:02
PROVIDERS: ATTEND Urology Pediatric Urology
DX: N20.0 Calculus of kidney (principal)

== ENCOUNTER → 2018-05-09 | Outpatient (REF) | payer OTHER ==
[2018-05-09 13:32] LABS: APPEARANCE, URINE CLEAR (CLEAR); BACTERIA, URINE AUTO 1+ (NEGATIVE); BILIRUBIN, URINE AUTO NEGATIVE (NEGATIVE); BLOOD, URINE BLOOD 3+ (NEGATIVE); GLUCOSE, URINE (UA) AUTO NEGATIVE (NEGATIVE); KETONE, URINE AUTO NEGATIVE (NEGATIVE); LEUKOCYTE ESTERASE, URINE AUTO 2+ (NEGATIVE); MUCUS, URINE SMALL (NEGATIVE); NITRITE, URINE AUTO NEGATIVE (NEGATIVE); PROTEIN, URINE AUTO 1+ mg/dL (NEGATIVE); RBC, URINE AUTO TNTC /HPF (0-3); SPECIFIC GRAVITY URINE AUTO 1.017 (1.002-1.035); SQUAMOUS EPITHELIAL CELL UR AU 2 /HPF (0-6); UROBILINOGEN, URINE AUTO 0.2 mg/dL (0.0-2.0); WBC, URINE AUTO 12 /HPF (0-3)
[2018-05-09 13:43] LABS: COLOR, URINE YELLOW (YELLOW); HEMOGLOBIN A1c 6.5 %
== END ==
LOC: M SMT 12:32
PROVIDERS: ATTEND Urology Pediatric Urology
DX: N20.0 Calculus of kidney (principal); N30.01 Acute cystitis with hematuria; R81 Glycosuria

== ENCOUNTER → 2018-05-11 | Outpatient (CLI) | payer OTHER ==
[~2018-05-11] MED LIST changes: +ISOVUE-370 76% 100ML VIAL (Q9967) As Ordered ONE
--- NOTE | 2018-05-11 10:06 | REP ---
Clinical: Nephrolithiasis. Comparison: 04/08/2018. Technique: Axial precontrast, contrast enhanced, and delayed images of the abdomen and pelvis using 100 ml Isovue 370 intravenous contrast material with coronal and sagittal re-formations as well as 3-D CT urogram. Findings: The left kidney demonstrates cortical and parapelvic cysts along with residual 6 mm nonobstructing intrarenal calculus. A ureteral stent is noted in satisfactory position. A 7 mm calculus is identified in the proximal left ureter while smaller ureteral calculi are also identified in the distal left ureter adjacent to the stent measuring roughly 1-2 mm each. The bladder is collapsed and without calculi. The right kidney demonstrates cortical and parapelvic cysts along with 3 mm nonobstructing calculus and no evidence for hydronephrosis. Evidence for gastric bypass surgery and suspected small hiatal hernia. Liver, spleen, pancreas, and bilateral adrenal glands are normal. The patient is status post cholecystectomy. The enteric system is without obstruction or acute inflammatory process. Pelvis demonstrates partially collapsed bladder and evidence of prior hysterectomy. No ascites. No free air. No adenopathy. Abdominal aorta without aneurysm or dissection. Surrounding musculoskeletal structures demonstrate age-related changes without focal osseous abnormality. Lung bases are essentially clear. Impression: 1. Left ureteral stent identified with left intrarenal and ureteral calculi as described above. Right kidney includes 3 mm nonobstructing calculus. Bilateral peripelvic and cortical cysts noted. 2. No further acute abdominopelvic pathology appreciated. 3. Evidence of prior gastric bypass surgery, cholecystectomy and hysterectomy. Electronically Signed by Velasquez Mack MD 05/11/2018 09:57 A
== END ==
LOC: M RAD 08:34
PROVIDERS: ATTEND Urology Pediatric Urology
DX: N20.0 Calculus of kidney (principal)

== ENCOUNTER → 2018-05-13 | Outpatient (CLI) | payer OTHER ==
[~2018-05-13] MED LIST changes: -ISOVUE-370 76% 100ML VIAL (Q9967) As Ordered ONE
--- NOTE | 2018-05-13 11:18 | REP ---
Clinical: Nephrolithiasis. Technique: Two supine views of the abdomen and pelvis. Comparison: 05/05/2018. Findings: Left ureteral stent in satisfactory position. Left intrarenal calculi measure up to approximately 7 mm. Small calcifications along the path of the distal left ureter cannot be excluded. Small right intrarenal calculus approximately 3 mm also suggested. The bowel gas pattern is nonspecific. No organomegaly. Skeletal structures stable. Impression: 1. Left ureteral stent in satisfactory position. Multiple left intrarenal calculi measuring up to approximately 7 mm are identified along with possible small calculi along the path of the left ureter. 2. 3 mm nonobstructing right renal calculus also identified. Electronically Signed by Velasquez Mack MD 05/13/2018 11:10 A
== END ==
LOC: M SMT 09:29
PROVIDERS: ATTEND Urology Pediatric Urology
DX: N20.0 Calculus of kidney (principal); Z96.0 Presence of urogenital implants

== ENCOUNTER → 2018-05-13 | Outpatient (REF) | payer OTHER ==
[2018-05-13 14:14] LABS: AMORPHOUS SEDIMENT MODERATE (NEGATIVE); APPEARANCE, URINE TURBID (CLEAR); BACTERIA, URINE AUTO NEGATIVE (NEGATIVE); BILIRUBIN, URINE AUTO NEGATIVE (NEGATIVE); BLOOD, URINE BLOOD 3+ (NEGATIVE); COLOR, URINE AMBER (YELLOW); GLUCOSE, URINE (UA) AUTO NEGATIVE (NEGATIVE); KETONE, URINE AUTO NEGATIVE (NEGATIVE); LEUKOCYTE ESTERASE, URINE AUTO 2+ (NEGATIVE); MUCUS, URINE SMALL (NEGATIVE); NITRITE, URINE AUTO NEGATIVE (NEGATIVE); PROTEIN, URINE AUTO 2+ mg/dL (NEGATIVE); RBC, URINE AUTO TNTC /HPF (0-3); SQUAMOUS EPITHELIAL CELL UR AU 6 /HPF (0-6); UROBILINOGEN, URINE AUTO 0.2 mg/dL (0.0-2.0); WBC, URINE AUTO 17 /HPF (0-3)
== END ==
LOC: M SMT 13:09
PROVIDERS: ATTEND Urology Pediatric Urology
DX: N20.0 Calculus of kidney (principal)

== ENCOUNTER → 2018-05-20 | Outpatient (CLI) | payer OTHER ==
[~2018-05-20] MED LIST changes: +MAGN1TAB25 PO; +POTA10808 PO; +PROBCAP4 PO; +vitamin B12 IM
[2018-05-20 16:58] LABS: HEMATOCRIT 43.4 % (36.0-47.0); HEMOGLOBIN 14.1 g/dl (12.0-15.5); MEAN CORPUSCULAR HEMOGLOBIN 26.2 pg (27.0-33.0); MEAN CORPUSCULAR HGB CONC 32.5 g/dl (32.0-36.5); MEAN CORPUSCULAR VOLUME 80.5 fl (80.0-96.0); PLATELET COUNT, AUTOMATED 568 10^3/uL (150-450); RED BLOOD COUNT 5.39 10^6/uL (4.00-5.40); WHITE BLOOD COUNT 9.8 10^3/uL (4.0-10.0)
[2018-05-20 17:26] LABS: CALCIUM LEVEL 8.6 MG/DL (8.5-10.1); CREATININE FOR GFR 1.28 MG/DL (0.55-1.30); GLOMERULAR FILTRATION RATE 46.4 (>51); POTASSIUM SERUM 4.7 MEQ/L (3.5-5.1)
== END ==
LOC: M LAB 16:27
PROVIDERS: ATTEND Urology
DX: Z01.818 Encounter for other preprocedural examination (principal); N20.0 Calculus of kidney

== ENCOUNTER 2018-05-26 12:38 | Day surgery (SDC) | payer OTHER ==
[~2018-05-26] VITALS: Ht 167.6 cm; Wt 104.3 kg
[~2018-05-26 12:38] MED LIST changes: +LR 1,000 ML IV ONE; -MAGN1TAB25 PO; -POTA10808 PO
[2018-05-26] MEDS ORDERED: POTA10808 PO (13:08)
[2018-05-26] MEDS ORDERED: MAGN1TAB25 PO (13:09)
[2018-05-26] MEDS ORDERED: MIDAZOLAM INJ 2 MG/2 ML VIAL (J2250) As Ordered ONE (13:58)
[2018-05-26] MEDS ORDERED: LIDOCAINE 2% INJ 100 MG/5 ML SDV (FOR ANES.) As Ordered ONE (13:58)
[2018-05-26] MEDS ORDERED: PROPOFOL 200 MG/20 ML VIAL As Ordered ONE (13:58)
[2018-05-26] MEDS ORDERED: ONDANSETRON 4MG/2ML VIAL (J2405) As Ordered ONE (13:58)
[2018-05-26] MEDS ORDERED: fentaNYL 100 MCG/2 ML INJECTION (J3010) As Ordered ONE (13:58)
[2018-05-26] MEDS ORDERED: dexameTHASONE 4 MG/ML 1ML VIAL (J1100) As Ordered ONE (13:58)
[2018-05-26] MEDS ORDERED: CONRAY-60 60% 50ML VIAL (Q9961) As Ordered ONE (15:20)
--- NOTE | 2018-05-26 16:39 | REP ---
RETROGRADE PYELOGRAM: 05/26/2018 Clinical history: Nephrolithiasis. Technique: Three images from C-arm fluoroscopy provided to Dr. Soler of the urology division for placement of a left internal ureteral stent. Findings: The initial image shows a catheter in the left ureter to the UPJ. The wire courses through the catheter curving on itself in the upper pole odilon. Second image shows the internal stent coiled proximally in the renal pelvis and the third image shows that stent coiled distally in the bladder to the left of midline. Fluoroscopy time: 13 seconds. Electronically Signed by Ismael Castro MD 05/26/2018 07:56 P
[2018-05-26] MEDS ORDERED: oxyBUTYnin 5 MG TAB PO PRN (17:00)
[2018-05-26] MEDS ORDERED: fentaNYL 100 MCG/2 ML INJECTION (J3010) IV PRN (17:00)
[2018-05-26] MEDS ORDERED: PERCOCET 5MG/325MG TAB PO PRN ×2 (17:00)
[2018-05-26] MEDS ORDERED: ONDANSETRON 4MG/2ML VIAL (J2405) IV PRN (17:00)
[2018-05-26] MEDS ORDERED: LR 1,000 ML IV SCH (17:00)
[2018-05-26 17:40] VITALS: BP 131/65
--- NOTE | 2018-05-27 07:28 | RO ---
DATE OF PROCEDURE: 05/26/2018 PREPROCEDURE DIAGNOSIS: Left kidney and ureteral stones. POSTPROCEDURE DIAGNOSIS: Left kidney and ureteral stones. PROCEDURE: Cystoscopy, left ureteroscopy with laser lithotripsy and basket extraction of stones, left retrograde pyelogram with intraoperative interpretation of images, left ureteral stent exchange. SURGEON: Dr. Byron Soler CARPENTER MAINTENANCE: None. ANESTHESIA: General. OPERATIVE INDICATIONS: This is a 52-year-old female who underwent a left ureteral stent placement several weeks ago for an obstructing stone and subsequently had a left extracorporeal shock wave lithotripsy. On followup imaging, she still had several stones remaining in the left ureter and the kidney. She was brought to the operating room today for the above listed procedure. DESCRIPTION OF PROCEDURE: The patient was brought to the operating room where general anesthesia was induced. Prophylactic antibiotics were infused. She was then placed in dorsal lithotomy position, prepped and draped in the usual sterile fashion. At this point, a guidewire was advanced up the left collecting system along side the previously placed stent. The previously placed stent was then withdrawn completely. I then went up the left collecting system with a short semi-rigid ureteroscope and throughout the ureter, there was approximately four to five stones measuring around 4 mm in size. All of these stones were removed using a basket. At this point, I advanced ureteral access sheath up into the left collecting system. I went up the access sheath with a flexible ureteroscope and within the proximal ureter, another 4 mm stone was seen. The stone was then grasped with a basket and withdrawn. I then examined the left kidney and within the left kidney approximately five to six stones were seen with the largest one measuring around 6-7 mm in size. The majority of the stones were removed directly with a basket. The largest stone had to be lasered into smaller fragments using a 200 Micron laser fiber. All the fragments were then removed using a basket. I then examined the kidney one again thoroughly and confirmed that all stones had been removed. A retrograde pyelogram was then performed and was notable for mild to moderate left hydronephrosis and no extravasation. At this point, I withdrew the ureteroscope along with the access sheath and no additional stones were seen within the ureter. I then utilized the previously placed wire to advance a #6-Bulgarian x 22-32 cm JJ ureteral stent up to the left collecting system. The wire was then removed and there were adequate curl to the stent in left renal pelvis and bladder. The bladder was emptied of all fluid and this marked the conclusion of the procedure. The patient was then taken out of dorsal lithotomy position, awakened from anesthesia, transferred to recovery room in stable condition. ESTIMATED BLOOD LOSS: 5 mL. COMPLICATIONS: None. SPECIMENS: Kidney stone fragments. PLAN: The patient will followup in the clinic in a few weeks for stent removal. LANNY
== END 2018-05-26 18:05 | disposition home or self-care (01) ==
LOC: M SDC 12:38
PROVIDERS: ATTEND Urology
DX: N20.0 Calculus of kidney (principal); N20.1 Calculus of ureter; I10 Essential (primary) hypertension; E03.9 Hypothyroidism, unspecified; Z98.84 Bariatric surgery status; Z79.899 Other long term (current) drug therapy; R73.03 Prediabetes
CPT/HCPCS: 52356; 74420; 82360; 88300; C1769; C2617; J0690; J1100; J2250; J2405; J3010; Q9961

== ENCOUNTER → 2018-06-16 | Outpatient (REF) | payer OTHER ==
[~2018-06-16] MED LIST changes: +HYDR-3715 PO; -LR 1,000 ML IV ONE; +MAGN1TAB26 PO; -NORCOTAB PO; +POTA10808 PO
== END ==
LOC: M SFHCLERA 10:43
PROVIDERS: ATTEND Nurse Practitioner Family
DX: R10.9 Unspecified abdominal pain (principal)

== ENCOUNTER → 2018-06-27 | Outpatient (REF) | payer OTHER ==
[2018-06-27 13:45] LABS: APPEARANCE, URINE CLEAR (CLEAR); BACTERIA, URINE AUTO NEGATIVE (NEGATIVE); BILIRUBIN, URINE AUTO NEGATIVE (NEGATIVE); BLOOD, URINE BLOOD NEGATIVE (NEGATIVE); COLOR, URINE YELLOW (YELLOW); GLUCOSE, URINE (UA) AUTO NEGATIVE (NEGATIVE); KETONE, URINE AUTO NEGATIVE (NEGATIVE); LEUKOCYTE ESTERASE, URINE AUTO NEGATIVE (NEGATIVE); MUCUS, URINE SMALL (NEGATIVE); NITRITE, URINE AUTO NEGATIVE (NEGATIVE); PROTEIN, URINE AUTO NEGATIVE (NEGATIVE); RBC, URINE AUTO 1 /HPF (0-3); SPECIFIC GRAVITY URINE AUTO 1.018 (1.002-1.035); SQUAMOUS EPITHELIAL CELL UR AU 4 /HPF (0-6); UROBILINOGEN, URINE AUTO 0.2 mg/dL (0.0-2.0); WBC, URINE AUTO 2 /HPF (0-3)
== END ==
LOC: M SMT 12:53
PROVIDERS: ATTEND Nurse Practitioner Family
DX: N39.0 Urinary tract infection, site not specified (principal)

== ENCOUNTER → 2018-11-15 | Outpatient (CLI) | payer OTHER ==
[~2018-11-15] MED LIST changes: -OMEP40CA2 PO; +OMEP40CA97 PO; +SUCR1ORA PO; -SUCR1SUS PO
--- NOTE | 2018-11-15 15:29 | REP ---
Clinical: Trauma. Pain. Technique: AP, lateral, bilateral oblique views of the right fifth toe. Findings: Degenerative changes are appreciated. Subtle injury to the distal phalanx cannot be excluded. Impression: Cannot exclude subtle nondisplaced injury to the distal phalanx fifth toe. Electronically Signed by Velasquez Mack MD 11/15/2018 03:21 P
== END ==
LOC: M LRY 15:04
PROVIDERS: ATTEND Nurse Practitioner Family
DX: M79.674 Pain in right toe(s) (principal)
CPT/HCPCS: 73660; G0463

== ENCOUNTER → 2018-12-21 | Outpatient (CLI) | payer OTHER ==
[~2018-12-21] MED LIST changes: -SUCR1ORA PO; +SUCR1SUS PO
--- NOTE | 2018-12-21 12:46 | REP ---
Abdomen for renal calculi: Comparison is 05/13/2018. The left ureteral stent has been removed. The calcifications identified in the lower pole of the left kidney on the prior study are no longer identified. However, they could be obscured by superimposed bowel. There is a faintly visible small calcification in the lower pole of the right kidney, unchanged. No calcifications are identified along the courses of either the right and left ureters. There is a small calcification in the pelvis on the right and a small calcification in the pelvis on the left. These are unchanged and are likely phleboliths. The bowel gas pattern is normal. The skeletal structures are unremarkable. Electronically Signed by Boris Ayala MD 12/21/2018 12:38 P
== END ==
LOC: M SMT 10:06
PROVIDERS: ATTEND Nurse Practitioner Family
DX: N20.0 Calculus of kidney (principal)
CPT/HCPCS: 74018; G0463

== ENCOUNTER → 2019-04-15 | Outpatient (CLI) | payer OTHER ==
[~2019-04-15] MED LIST changes: +QUET100T2 PO; -QUET1TAB8 PO; +SUCR1ORA PO; -SUCR1SUS PO
--- NOTE | 2019-04-15 13:35 | REP ---
PA and lateral chest: Comparison is 2017. The lung gilliam are clear. Cardiac size is normal. The jesus, mediastinum, and skeletal structures are unremarkable. There is a loop recorder in the anterior chest wall as an interval change. There is mild elevation of the right hemidiaphragm as an interval change. There are surgical clips in the abdominal left upper quadrant, unchanged. Impression: There are no acute cardiopulmonary findings. Electronically Signed by Boris Ayala MD 04/15/2019 01:26 P
== END ==
LOC: M LRY 13:10
PROVIDERS: ATTEND Physician Assistant
DX: R50.9 Fever, unspecified (principal)
CPT/HCPCS: 71046; 81002; 87804; G0463

== ENCOUNTER → 2019-06-14 | Outpatient (CLI) | payer OTHER ==
--- NOTE | 2019-06-14 20:05 | REP ---
HISTORY: Pain. FINDINGS: The joint spaces are symmetric and relatively well maintained. There is no evidence of acute fracture or destructive osseous lesion. Plantar and retrocalcaneal heel spurs are present. IMPRESSION: Negative. Plantar and retrocalcaneal heel spurs are present. Electronically Signed by Alonso Cano DO 06/15/2019 10:18 A
== END ==
LOC: M LRY 19:12
PROVIDERS: ATTEND Nurse Practitioner Family
DX: M77.31 Calcaneal spur, right foot (principal)
CPT/HCPCS: 73630; G0463

== ENCOUNTER → 2019-08-23 | Outpatient (CLI) | payer OTHER ==
--- NOTE | 2019-08-23 15:12 | REPMRS ---
Patient History The patient states she has not had a clinical breast exam in over a year. Family history of breast cancer at age 50 in paternal grandmother, breast cancer at age 60 in maternal grandmother. 3D TOMOSYNTHESIS WAS PERFORMED. The Alvarado Mari lifetime risk for breast cancer is 12.8%. VOLPARA DENSITY B. Digital Woman Screen Mammo: August 23, 2019 - Exam #: [id number] Bilateral CC and MLO view(s) were taken. Technologist: Chelsie Araya Technologist Prior study comparison: August 18, 2017, digital woman screen mammo performed at [facility]. May 05, 2016, digital woman screen mammo performed at [facility]. FINDINGS: There are scattered fibroglandular densities. There has been no change in the appearance of the mammogram from the prior studies. There is a mild amount of residual fibroglandular tissue which is fairly symmetric. There is no interval development of dominant mass, architectural distortion, or clustered microcalcification suggestive of malignancy. Assessment: BI-RADS/ACR category 1 mammogram. Negative Mammogram. Recommendation Routine screening mammogram in 1 year (for women over age 40). This mammogram was interpreted with the aid of an FDA-approved computer-aided dectection system. Electronically Signed By: Boris Egna MD 08/23/19 [id number]
== END ==
LOC: M WHC 12:51
PROVIDERS: ATTEND Nurse Practitioner Primary Care
DX: Z12.31 Encounter for screening mammogram for malignant neoplasm of breast (principal); Z80.3 Family history of malignant neoplasm of breast

== ENCOUNTER → 2020-02-21 | Outpatient (CLI) | payer OTHER ==
[~2020-02-21] MED LIST changes: -ZOLP6.25 PO; +ZOLP6.2517 PO
--- NOTE | 2020-02-21 15:37 | REP ---
INDICATION: CALCULUS OF KIDNEY. COMPARISON: Comparison radiograph December 21, 2018.. TECHNIQUE: Two views. FINDINGS: Bowel gas pattern is unremarkable. there is a small 3 mm calcific opacity projecting at the lower pole of the right kidney. There is a 4 mm calcific opacity projecting over the left posterior 11th rib at the level of the left mid kidney. No other urinary tract calculus is appreciated. Flank stripes are intact. There are surgical clips in the left upper quadrant. IMPRESSION: There appear to be calcifications overlying each kidney, 1 on each side consistent with bilateral intrarenal nephrolithiasis. <Electronically signed by Manoj Palmer > 02/21/20 [id number]
== END ==
LOC: M RAD 10:21
PROVIDERS: ATTEND Nurse Practitioner Family
DX: N20.0 Calculus of kidney (principal)